=== PATIENT | female | born 1970 | race Caucasian/White ===

== ENCOUNTER → 2020-10-20 09:35 | Outpatient (BNVA) | payer MEDICARE, MEDICAID, SELFPAY | PROVIDERS: Family Provider Nurse Practitioner Family; Visit Provider Obstetrics & Gynecology | DX: N93.9 Abnormal uterine and vaginal bleeding, unspecified (principal); Z12.4 Encounter for screening for malignant neoplasm of cervix; N92.0 Excessive and frequent menstruation with regular cycle | CPT/HCPCS: 84443; 88175; 88305 ==

== ENCOUNTER → 2020-10-21 08:45 | Outpatient (BNVA) | payer MEDICARE, MEDICAID, SELFPAY | PROVIDERS: Family Provider Nurse Practitioner Family; Visit Provider Obstetrics & Gynecology | DX: N85.4 Malposition of uterus (principal); N88.8 Other specified noninflammatory disorders of cervix uteri | CPT/HCPCS: 76830 ==

== ENCOUNTER → 2023-02-22 13:33 | Outpatient (BNVA) | payer MEDICARE, MEDICAID, SELFPAY | PROVIDERS: Family Provider Nurse Practitioner Family; PCP Family Medicine; Visit Provider Surgery | DX: Z12.11 Encounter for screening for malignant neoplasm of colon (principal); K21.9 Gastro-esophageal reflux disease without esophagitis | CPT/HCPCS: 99024; 99203 ==

== ENCOUNTER 2023-04-19 07:53 | Day surgery (SDC) | payer MEDICARE, MEDICAID, SELFPAY ==
[2023-04-19 08:15] VITALS: BP 98/77; PULSE 98; RESP 17; TEMP 36.3; O2SAT 97; BMI 30.9
[2023-04-19] MEDS: sodium chloride 0.9% 1,000 ML 30 ML IV (08:20)
--- NOTE | 2023-04-19 08:20 | P.ANESASSM_ITS ---
Pre-Anesthetic Assessment Height/Weight: Height 1.63 m Weight 81.647 kg Temp Pulse Resp BP Pulse Ox O2 Del Method 97.4 F L 98 17 98/77 97 Room Air 04/19/23 08:15 04/19/23 08:15 04/19/23 08:15 04/19/23 08:15 04/19/23 08:15 04/19/23 08:15 Preop Diagnosis: screening Operation Date: 04/19/23 09:00 Proposed Procedures p [id number] egd [id number] colon Z12.11,K21.9(Not Applicable) - DO willie Hinojosa Colonoscopy(Not Applicable) - Audi Lincoln DO Familial anesthetic complications: none Last intake: Intake Last Liquid Date 04/18/23 Last Liquid Time 22:00 Last Solid Date 04/17/23 Social No alcohol and No tobacco Exam alert, oriented x 3, clear to auscultation bilaterally and regular rate & rhythm Airway Submandibular: within normal limits Cervical ROM: within normal limits Mallampati: Class II Dentition: full Pulmonary None reported CV/HEM Hypertension None reported Hepatic None reported GI None reported Metabolic Diabetes Mellitus and Hyperlipidemia [facility] Fibromyalgia and Lower Back Pain Neuropsych Anxiety, Depression and Neuropathy (bilateral hands) Anesthetic Plan ASA status: 3 Anesthesia: MAC Medications/Allergies Home Medications Medication Instructions Recorded Confirmed Last Taken Type canagliflozin 300 mg tablet 300 mg PO BEDTIME 10/20/20 04/19/23 04/17/23 History (Invokana) celecoxib 200 mg capsule 200 mg PO BID 10/20/20 04/19/23 04/18/23 History fexofenadine 180 mg tablet 180 mg PO DAILY PRN Allergy 10/20/20 04/19/23 04/17/23 History (Kimberly Allergy) Symptoms melatonin 5 mg capsule 5 mg PO BEDTIME 10/20/20 04/19/23 04/17/23 History metformin 500 mg tablet 500 mg PO BID 10/20/20 04/19/23 04/18/23 History pregabalin 150 mg capsule 150 mg PO TID 10/20/20 04/19/23 04/18/23 History rosuvastatin 20 mg tablet 20 mg PO DAILY 10/20/20 04/19/23 04/18/23 History tizanidine 4 mg capsule 4 mg PO TID 10/20/20 04/19/23 04/19/23 History vortioxetine 20 mg tablet 20 mg PO DAILY 10/20/20 04/19/23 04/18/23 History (Trintellix) hydrocodone 10 mg-acetaminophen 1 tab PO .6 tabs daily PRN Pain 02/22/23 04/19/23 04/19/23 History 325 mg tablet lisinopril 5 mg tablet 5 mg PO BID 02/22/23 04/19/23 04/18/23 History pantoprazole 40 mg tablet,delayed 40 mg PO BID 6 weeks #84 tabs 02/22/23 04/19/23 04/18/23 Rx release (Protonix) tirzepatide 7.5 mg/0.5 mL 10 mg SUBCUT .1x week 02/22/23 04/19/23 04/12/23 History subcutaneous pen injector (Mounjaro) cyanocobalamin (vitamin B-12) 1,000 mcg IM .MONTHLY 04/17/23 04/19/23 03/26/23 History 1,000 mcg/mL injection solution epinephrine 0.3 mg/0.3 mL 0.3 mg SUBCUT PRN PRN Anaphylaxis 04/17/23 04/19/23 Unknown History injection, auto-injector Allergies Allergy/AdvReac Type Severity Reaction Status Date / Time Alpha-Gal Allergy nausea/vomiting, Verified 04/19/23 08:06 (Vrpnufmfc-Cfrwx-7,3-Gala diarrhea, anyphalaxis PFSH Anesthesia Family History Grandmother Breast cancer Maternal Diabetes Paternal Father Cancer Skin cancer Diabetes Hypertension Family/Other Cancer Paternal Aunts and Uncles x4--skin cancer Diabetes Paternal Aunts and Uncles x4 Grandmother Diabetes Maternal Family/Other Diabetes Maternal uncle Hypertension Paternal Aunts and Uncles x4 Grandfather Stroke Paternal Mother Stroke Denies family history of Ovarian cancer Chronic kidney disease (CKD) Anesthesia complication Bleeding disorder Uterine cancer Thyroid disease Social History Smoking and tobacco/nicotine status: former use of tobacco/nicotine Alcohol intake: never Substance/Drug Use: never Data Anesthesia Cardiac Studies: No Data to Display
[2023-04-19 08:23] LABS: Glucose Point of Care 73 mg/dL (70-110)
--- NOTE | 2023-04-19 08:26 | PM.HP ---
Providers/Chief Complaint Primary Care Provider: Ag Almanzar MD Chief Complaint: Z12.11, K21.9 History of Present Illness Dana Farmer is a 52 year old female Review of Systems General: Reports: 10 or more systems reviewed and unremarkable except in HPI and below Medications/Allergies Home Medications Medication Instructions Recorded Confirmed Last Taken Type canagliflozin 300 mg tablet 300 mg PO BEDTIME 10/20/20 04/19/23 04/17/23 History (Invokana) celecoxib 200 mg capsule 200 mg PO BID 10/20/20 04/19/23 04/18/23 History fexofenadine 180 mg tablet 180 mg PO DAILY PRN Allergy 10/20/20 04/19/23 04/17/23 History (Kimberly Allergy) Symptoms melatonin 5 mg capsule 5 mg PO BEDTIME 10/20/20 04/19/23 04/17/23 History metformin 500 mg tablet 500 mg PO BID 10/20/20 04/19/23 04/18/23 History pregabalin 150 mg capsule 150 mg PO TID 10/20/20 04/19/23 04/18/23 History rosuvastatin 20 mg tablet 20 mg PO DAILY 10/20/20 04/19/23 04/18/23 History tizanidine 4 mg capsule 4 mg PO TID 10/20/20 04/19/23 04/19/23 History vortioxetine 20 mg tablet 20 mg PO DAILY 10/20/20 04/19/23 04/18/23 History (Trintellix) hydrocodone 10 mg-acetaminophen 1 tab PO .6 tabs daily PRN Pain 02/22/23 04/19/23 04/19/23 History 325 mg tablet lisinopril 5 mg tablet 5 mg PO BID 02/22/23 04/19/23 04/18/23 History pantoprazole 40 mg tablet,delayed 40 mg PO BID 6 weeks #84 tabs 02/22/23 04/19/23 04/18/23 Rx release (Protonix) tirzepatide 7.5 mg/0.5 mL 10 mg SUBCUT .1x week 02/22/23 04/19/23 04/12/23 History subcutaneous pen injector (Mounjaro) cyanocobalamin (vitamin B-12) 1,000 mcg IM .MONTHLY 04/17/23 04/19/23 03/26/23 History 1,000 mcg/mL injection solution epinephrine 0.3 mg/0.3 mL 0.3 mg SUBCUT PRN PRN Anaphylaxis 04/17/23 04/19/23 Unknown History injection, auto-injector Allergies Allergy/AdvReac Type Severity Reaction Status Date / Time Alpha-Gal Allergy nausea/vomiting, Verified 04/19/23 08:06 (Askbbauqr-Rnivp-6,3-Gala diarrhea, anyphalaxis PFSH Acute PFSH: Medical History (Updated 04/19/23 @ 08:27 by Audi Lincoln DO) Anxiety Cervical vertebral fusion 2013 Depression Diabetes type 2, controlled Fibromyalgia History of basal cell carcinoma of skin 1017-6410 History of melanoma x2-- 8044-4237 Hypertension Hypotension Surgical History (Updated 04/19/23 @ 08:27 by Audi Lincoln DO) H/O section x2-- 08/13/96 & 1999 History of endometrial ablation History of neck surgery fusion Hx of dilation and curettage Family History Grandmother Breast cancer Maternal Diabetes Paternal Father Cancer Skin cancer Diabetes Hypertension Family/Other Cancer Paternal Aunts and Uncles x4--skin cancer Diabetes Paternal Aunts and Uncles x4 Grandmother Diabetes Maternal Family/Other Diabetes Maternal uncle Hypertension Paternal Aunts and Uncles x4 Grandfather Stroke Paternal Mother Stroke Denies family history of Ovarian cancer Chronic kidney disease (CKD) Anesthesia complication Bleeding disorder Uterine cancer Thyroid disease Social History Smoking and tobacco/nicotine status: former use of tobacco/nicotine Alcohol intake: never Substance/Drug Use: never Vitals/I&O/Wt Last Vital Signs Temp 97.4 F L 04/19/23 08:15 Pulse 98 04/19/23 08:15 Resp 17 04/19/23 08:15 BP 98/77 04/19/23 08:15 Pulse Ox 97 04/19/23 08:15 O2 Del Method Room Air 04/19/23 08:15 Weight last 48 hrs Weight 180 lb A&P Assessment and plan (1) GERD (gastroesophageal reflux disease): (2) Colon cancer screening: Plan EGD and screening colonoscopy The risks and benefits of the procedure, including bleeding, infection, intestinal perforation requiring surgery, missed lesion were explained to the patient. The patient is understanding of the risks and wishes to proceed. Attestations Medical Necessity Statement*: Home Coding Level of Care Code Acute Code for Chg Fwd Diagnoses GERD (gastroesophageal reflux disease) K21.9 Colon cancer screening Z12.11
[2023-04-19 09:01] VITALS: BP 88/62; PULSE 92; RESP 14; TEMP 36.1; O2SAT 98
[2023-04-19 09:10] VITALS: BP 109/65; PULSE 86; RESP 16; O2SAT 98
== END 2023-04-19 09:33 | disposition home or self-care (01) ==
PROVIDERS: PCP Family Medicine; Visit Provider Surgery
PROC: 0DJ08ZZ Inspection of Upper Intestinal Tract, Via Natural or Artificial Opening Endoscopic (ICD-10-PCS; CPT 43235; principal; 2023-04-19 09:00)
PROC: 0DJD8ZZ Inspection of Lower Intestinal Tract, Via Natural or Artificial Opening Endoscopic (ICD-10-PCS; CPT 45378; 2023-04-19 09:00)
DX: Z12.11 Encounter for screening for malignant neoplasm of colon (principal); K21.9 Gastro-esophageal reflux disease without esophagitis; K29.70 Gastritis, unspecified, without bleeding; Z79.84 Long term (current) use of oral hypoglycemic drugs; F41.9 Anxiety disorder, unspecified; F32.A Depression, unspecified; M79.7 Fibromyalgia; I10 Essential (primary) hypertension; Z87.891 Personal history of nicotine dependence; E78.5 Hyperlipidemia, unspecified; E11.42 Type 2 diabetes mellitus with diabetic polyneuropathy
CPT/HCPCS: 36416; 43239; 82962; 88305; G0121; J2704; J7030

== ENCOUNTER → 2023-05-02 09:22 | Outpatient (BNVA) | payer MEDICARE, MEDICAID, SELFPAY | PROVIDERS: PCP Family Medicine; Visit Provider Surgery | DX: Z09 Encounter for follow-up examination after completed treatment for conditions other than malignant neoplasm (principal); K21.9 Gastro-esophageal reflux disease without esophagitis; R11.2 Nausea with vomiting, unspecified; R10.13 Epigastric pain; R13.10 Dysphagia, unspecified | CPT/HCPCS: 99214 ==

== ENCOUNTER 2023-05-18 06:31 | Outpatient (CLI) | payer MEDICARE, MEDICAID, SELFPAY ==
--- NOTE | 2023-05-18 06:45 | US_ITS ---
WS: [id number] RIGHT UPPER QUADRANT ULTRASOUND HISTORY: epigastric pain, nausea and vomiting COMPARISON: None available. Liver: 14.4 cm in length. Normal size liver and echogenicity. No bile duct dilatation or mass. Portal Vein: Normal hepatopetal flow with monophasic waveform. Gallbladder: Normally distended gallbladder with no stones or wall thickening. CBD: 0.5 cm Pancreas: Normal size and echogenicity. Right kidney: 10.6 cm in length. Normal size and echogenicity. No hydronephrosis or mass. Aorta and IVC: Unremarkable abdominal aorta and IVC. No ascites. IMPRESSION: Normal RIGHT upper quadrant ultrasound.
== END 2023-05-18 06:32 | disposition home or self-care (01) ==
LOC: RAD 06:31
PROVIDERS: PCP Family Medicine; Visit Provider Surgery
DX: R10.13 Epigastric pain (principal); R11.2 Nausea with vomiting, unspecified
CPT/HCPCS: 76705

== ENCOUNTER → 2023-06-06 09:13 | Outpatient (BNVA) | payer MEDICARE, MEDICAID, SELFPAY | PROVIDERS: PCP Family Medicine; Visit Provider Surgery | DX: R10.13 Epigastric pain (principal); R11.2 Nausea with vomiting, unspecified; K21.9 Gastro-esophageal reflux disease without esophagitis; R19.7 Diarrhea, unspecified | CPT/HCPCS: 99214 ==

== ENCOUNTER 2023-06-20 07:41 | Outpatient (CLI) | payer MEDICARE, MEDICAID, SELFPAY ==
--- NOTE | 2023-06-20 08:00 | NM_ITS ---
WS: [id number] NUCLEAR MEDICINE HIDA SCAN CLINICAL INFORMATION: abd pain TECHNIQUE: Following intravenous administration of 7.6 mCi of technetium 99m mebrofenin, images of th e abdomen were obtained over the course of 60 minutes. Next, gallbladder ejection fraction was determ ined by obtaining preprandial and one-hour postprandial images of the gallbladder following oral tammi stion of Ensure. COMPARISON: Ultrasound 05/18/2023 FINDINGS: Normal hepatic uptake at 5 minutes. Normal hepatic excretion. Gallbladder is visualized by 10 minutes . No evidence of acute cholecystitis. Normal common bile duct and small bowel activity. Gallbladder ejection fraction 67% within normal limits. No evidence of chronic cholecystitis. IMPRESSION: 1. No evidence of acute or chronic cholecystitis. 2. Gallbladder ejection fraction 67% within normal limits.
== END 2023-06-20 07:42 | disposition home or self-care (01) ==
PROVIDERS: PCP Family Medicine; Visit Provider Surgery
DX: R10.13 Epigastric pain (principal); R11.2 Nausea with vomiting, unspecified; K21.9 Gastro-esophageal reflux disease without esophagitis
CPT/HCPCS: 78227; A9537

== ENCOUNTER 2023-07-24 05:51 | Day surgery (SDC) | payer MEDICARE, MEDICAID, SELFPAY ==
[2023-07-24] VITALS (10 sets, daily range): BP systolic 100–130; BP diastolic 62–84; PULSE 48–107; RESP 9–20; TEMP 36.1–36.4; O2SAT 95–100
--- NOTE | 2023-07-24 06:41 | P.ANESASSM_ITS ---
Pre-Anesthetic Assessment Height/Weight: Height 1.63 m Weight 79.379 kg Temp Pulse Resp BP Pulse Ox O2 Del Method 97.0 F L 61 18 113/75 100 Room Air 07/24/23 06:37 07/24/23 06:37 07/24/23 06:37 07/24/23 06:37 07/24/23 06:37 07/24/23 06:37 Operation Date: 07/24/23 07:00 Proposed Procedures p ap corwin [id number],R10.13, R11.2(Not Applicable) - Audi Lincoln DO Familial anesthetic complications: None Was Beta Ronni taken within 24 hours: N/A Was Clonidine taken within 24 hours: N/A Last intake: Intake Last Liquid Date 07/23/23 Last Liquid Time 21:00 Last Solid Date 07/23/23 Last Solid Time 18:00 Social No alcohol and No tobacco Exam alert, oriented x 3, clear to auscultation bilaterally and regular rate & rhythm Airway Mallampati: Class II Dentition: full Pulmonary Chronic Obstructive Pulmonary Disease hx R upper lobectomy for lung cancer GI Gastroesophageal Reflux Disease Metabolic Diabetes Mellitus and Hyperlipidemia Anesthetic Plan ASA status: 3 Anesthesia: General Risk of > 500 ml blood loss (7ml/kg in children): No Medications/Allergies Home Medications Medication Instructions Recorded Confirmed Last Taken Type canagliflozin 300 mg tablet 300 mg PO BEDTIME 10/20/20 07/24/23 07/21/23 History (Invokana) celecoxib 200 mg capsule 200 mg PO BID 10/20/20 07/24/23 07/23/23 History melatonin 5 mg capsule 5 mg PO BEDTIME 10/20/20 07/24/23 07/23/23 History metformin 500 mg tablet 500 mg PO BID 10/20/20 07/24/23 07/23/23 History pregabalin 150 mg capsule 150 mg PO TID 10/20/20 07/24/23 07/23/23 History rosuvastatin 20 mg tablet 20 mg PO DAILY 10/20/20 07/24/23 07/23/23 History tizanidine 4 mg capsule 4 mg PO TID 10/20/20 07/24/23 07/23/23 History vortioxetine 20 mg tablet 20 mg PO DAILY 10/20/20 07/24/23 07/23/23 History (Trintellix) hydrocodone 10 mg-acetaminophen 1 tab PO .6 tabs daily PRN Pain 02/22/23 07/24/23 07/23/23 History 325 mg tablet lisinopril 5 mg tablet 5 mg PO BID 02/22/23 07/24/23 07/23/23 History tirzepatide 7.5 mg/0.5 mL 10 mg SUBCUT .1x week 02/22/23 07/24/23 07/16/23 H istory subcutaneous pen injector (Hugh) cyanocobalamin (vitamin B-12) 1,000 mcg IM .MONTHLY 04/17/23 07/24/23 1 Month Ago History 1,000 mcg/mL injection solution ~06/23/23 epinephrine 0.3 mg/0.3 mL 0.3 mg SUBCUT PRN PRN Anaphylaxis 04/17/23 07/24/23 Unknown History injection, auto-injector Allergies Allergy/AdvReac Type Severity Reaction Status Date / Time Alpha-Gal Allergy nausea/vomiting, Verified 07/24/23 06:20 (Kvflgfswq-Zseyh-9,3-Gala diarrhea, anyphalaxis [facility] Anesthesia Medical History Diabetes type 2, controlled Fibromyalgia Anxiety Depression Hypertension Hypotension Cervical vertebral fusion 2013 History of basal cell carcinoma of skin 9805-6218 History of melanoma x2-- 9289-4515 Surgical History H/O section x2-- 08/13/96 & 1999 History of neck surgery fusion History of endometrial ablation Hx of dilation and curettage Family History Grandmother Breast cancer Maternal Diabetes Paternal Father Cancer Skin cancer Diabetes Hypertension Family/Other Cancer Paternal Aunts and Uncles x4--skin cancer Diabetes Paternal Aunts and Uncles x4 Grandmother Diabetes Maternal Family/Other Diabetes Maternal uncle Hypertension Paternal Aunts and Uncles x4 Grandfather Stroke Paternal Mother Stroke Denies family history of Ovarian cancer Chronic kidney disease (CKD) Anesthesia complication Bleeding disorder Uterine cancer Thyroid disease Social History Smoking and tobacco/nicotine status: former use of tobacco/nicotine Alcohol intake: never Substance/Drug Use: never Data Anesthesia Cardiac Studies: No Data to Display
--- NOTE | 2023-07-24 06:43 | P.ANESASSM_ITS ---
Pre-Anesthetic Assessment Height/Weight: Height 1.63 m Weight 79.379 kg Temp Pulse Resp BP Pulse Ox O2 Del Method 97.0 F L 61 18 113/75 100 Room Air 07/24/23 06:37 07/24/23 06:37 07/24/23 06:37 07/24/23 06:37 07/24/23 06:37 07/24/23 06:37 Operation Date: 07/24/23 07:00 Proposed Procedures p ap corwin [id number],R10.13, R11.2(Not Applicable) - Audi Lincoln DO Familial anesthetic complications: None Was Beta Ronni taken within 24 hours: N/A Was Clonidine taken within 24 hours: N/A Last intake: Intake Last Liquid Date 07/23/23 Last Liquid Time 21:00 Last Solid Date 07/23/23 Last Solid Time 18:00 Social No alcohol and No tobacco Exam alert, oriented x 3, clear to auscultation bilaterally and regular rate & rhythm Airway Mallampati: Class III Dentition: full GI Gastroesophageal Reflux Disease Metabolic Diabetes Mellitus and Hyperlipidemia [facility] Fibromyalgia and Lower Back Pain Anesthetic Plan ASA status: 2 Anesthesia: General Risk of > 500 ml blood loss (7ml/kg in children): No Medications/Allergies Home Medications Medication Instructions Recorded Confirmed Last Taken Type canagliflozin 300 mg tablet 300 mg PO BEDTIME 10/20/20 07/24/23 07/21/23 History (Invokana) celecoxib 200 mg capsule 200 mg PO BID 10/20/20 07/24/23 07/23/23 History melatonin 5 mg capsule 5 mg PO BEDTIME 10/20/20 07/24/23 07/23/23 History metformin 500 mg tablet 500 mg PO BID 10/20/20 07/24/23 07/23/23 History pregabalin 150 mg capsule 150 mg PO TID 10/20/20 07/24/23 07/23/23 History rosuvastatin 20 mg tablet 20 mg PO DAILY 10/20/20 07/24/23 07/23/23 History tizanidine 4 mg capsule 4 mg PO TID 10/20/20 07/24/23 07/23/23 History vortioxetine 20 mg tablet 20 mg PO DAILY 10/20/20 07/24/23 07/23/23 History (Trintellix) hydrocodone 10 mg-acetaminophen 1 tab PO .6 tabs daily PRN Pain 02/22/23 07/24/23 07/23/23 History 325 mg tablet lisinopril 5 mg tablet 5 mg PO BID 02/22/23 07/24/23 07/23/23 History tirzepatide 7.5 mg/0.5 mL 10 mg SUBCUT .1x week 02/22/23 07/24/23 07/16/23 History subcutaneous pen injector (Hugh) cyanocobalamin (vitamin B-12) 1,000 mcg IM .MONTHLY 04/17/23 07/24/23 1 Month Ago History 1,000 mcg/mL injection solution ~06/23/23 epinephrine 0.3 mg/0.3 mL 0.3 mg SUBCUT PRN PRN Anaphylaxis 04/17/23 07/24/23 Unknown History injection, auto-injector Allergies Allergy/AdvReac Type Severity Reaction Status Date / Time Alpha-Gal Allergy nausea/vomiting, Verified 07/24/23 06:20 (Vkrbwoncy-Srvjr-5,3-Gala diarrhea, anyphalaxis [facility] Anesthesia Medical History Diabetes type 2, controlled Fibromyalgia Anxiety Depression Hypertension Hypotension Cervical vertebral fusion 2013 History of basal cell carcinoma of skin 5551-7073 History of melanoma x2-- 1533-2547 Surgical History H/O section x2-- 08/13/96 & 1999 History of neck surgery fusion History of endometrial ablation Hx of dilation and curettage Family History Grandmother Breast cancer Maternal Diabetes Paternal Father Cancer Skin cancer Diabetes Hypertension Family/Other Cancer Paternal Aunts and Uncles x4--skin cancer Diabetes Paternal Aunts and Uncles x4 Grandmother Diabetes Maternal Family/Other Diabetes Maternal uncle Hypertension Paternal Aunts and Uncles x4 Grandfather Stroke Paternal Mother Stroke Denies family history of Ovarian cancer Chronic kidney disease (CKD) Anesthesia complication Bleeding disorder Uterine cancer Thyroid disease Social History Smoking and tobacco/nicotine status: former use of tobacco/nicotine Alcohol intake: never Substance/Drug Use: never Data Anesthesia Cardiac Studies: No Data to Display
--- NOTE | 2023-07-24 06:44 | PM.HP ---
Providers/Chief Complaint Primary Care Provider: Ag Almanzar MD Chief Complaint: R10.13, R11.2 History of Present Illness Dana Farmer is a 52 year old female Review of Systems General: Reports: 10 or more systems reviewed and unremarkable except in HPI and below Medications/Allergies Home Medications Medication Instructions Recorded Confirmed Last Taken Type canagliflozin 300 mg tablet 300 mg PO BEDTIME 10/20/20 07/24/23 07/21/23 History (Invokana) celecoxib 200 mg capsule 200 mg PO BID 10/20/20 07/24/23 07/23/23 History melatonin 5 mg capsule 5 mg PO BEDTIME 10/20/20 07/24/23 07/23/23 History metformin 500 mg tablet 500 mg PO BID 10/20/20 07/24/23 07/23/23 History pregabalin 150 mg capsule 150 mg PO TID 10/20/20 07/24/23 07/23/23 History rosuvastatin 20 mg tablet 20 mg PO DAILY 10/20/20 07/24/23 07/23/23 History tizanidine 4 mg capsule 4 mg PO TID 10/20/20 07/24/23 07/23/23 History vortioxetine 20 mg tablet 20 mg PO DAILY 10/20/20 07/24/23 07/23/23 History (Trintellix) hydrocodone 10 mg-acetaminophen 1 tab PO .6 tabs daily PRN Pain 02/22/23 07/24/23 07/23/23 History 325 mg tablet lisinopril 5 mg tablet 5 mg PO BID 02/22/23 07/24/23 07/23/23 History tirzepatide 7.5 mg/0.5 mL 10 mg SUBCUT .1x week 02/22/23 07/24/23 07/16/23 History subcutaneous pen injector (Mounjaro) cyanocobalamin (vitamin B-12) 1,000 mcg IM .MONTHLY 04/17/23 07/24/23 1 Month Ago History 1,000 mcg/mL injection solution ~06/23/23 epinephrine 0.3 mg/0.3 mL 0.3 mg SUBCUT PRN PRN Anaphylaxis 04/17/23 07/24/23 Unknown History injection, auto-injector Allergies Allergy/AdvReac Type Severity Reaction Status Date / Time Alpha-Gal Allergy nausea/vomiting, Verified 07/24/23 06:20 (Lzatuhylj-Ridcm-2,3-Gala diarrhea, anyphalaxis PFSH Acute PFSH: Medical History Diabetes type 2, controlled Fibromyalgia Anxiety Depression Hypertension Hypotension Cervical vertebral fusion 2013 History of basal cell carcinoma of skin 9077-1309 History of melanoma x2-- 3591-8319 Surgical History H/O section x2-- 08/13/96 & 1999 History of neck surgery fusion History of endometrial ablation Hx of dilation and curettage Family History Grandmother Breast cancer Maternal Diabetes Paternal Father Cancer Skin cancer Diabetes Hypertension Family/Other Cancer Paternal Aunts and Uncles x4--skin cancer Diabetes Paternal Aunts and Uncles x4 Grandmother Diabetes Maternal Family/Other Diabetes Maternal uncle Hypertension Paternal Aunts and Uncles x4 Grandfather Stroke Paternal Mother Stroke Denies family history of Ovarian cancer Chronic kidney disease (CKD) Anesthesia complication Bleeding disorder Uterine cancer Thyroid disease Social History Smoking and tobacco/nicotine status: former use of tobacco/nicotine Alcohol intake: never Substance/Drug Use: never Vitals/I&O/Wt Last Vital Signs Temp 97.0 F L 07/24/23 06:37 Pulse 61 07/24/23 06:37 Resp 18 07/24/23 06:37 BP 113/75 07/24/23 06:37 Pulse Ox 100 07/24/23 06:37 O2 Del Method Room Air 07/24/23 06:37 Weight last 48 hrs Weight 175 lb A&P Assessment and plan (1) Biliary colic: (2) Nausea and vomiting: (3) Epigastric pain: (4) Diarrhea: Plan Laparoscopic Cholecystectomy Attestations Medical Necessity Statement*: home Coding Level of Care Code Acute Code for [facility] Fwd Diagnoses Biliary colic K80.50 Nausea and vomiting R11.2 Epigastric pain R10.13 Diarrhea R19.7
[2023-07-24] MEDS: sodium chloride 0.9% 1,000 ML 30 ML IV (06:57)
[2023-07-24 07:02] LABS: Glucose Point of Care 101 mg/dL (70-110)
[2023-07-24] MEDS: ceFAZolin 2,000 MG in sodium chloride 0.9% (plus) 50 ML 100 MG IV (07:11)
[2023-07-24] MEDS: lidocaine-epi 2% 20 mL INJ INJECTION (07:36)
--- NOTE | 2023-07-24 07:52 | P.OP_ITS ---
Operative Report Date of procedure: July 24, 2023 Surgeon: Audi Lincoln DO Brief History: This very pleasant 52-year-old female who has been having biliary colic along with nausea vomiting, epigastric pain and diarrhea after eating. She was diagnosed with biliary colic and right upper quadrant syndrome. Laparoscopic cholecystectomy is indicated. The risk and benefits were explained and documented. Procedure: Preoperative diagnosis: Biliary colic, right upper quadrant syndrome Postoperative diagnosis: Same Procedure performed: Laparoscopic cholecystectomy Surgeon: Dr. Audi Lincoln DO Estimated blood loss: 5 mL Specimens: Gallbladder to pathology Complications: None apparent Description of procedure: Patient was wheeled into the operative room and placed on the OR table in a supine position. Abdomen was inspected prepped and draped in usual sterile fashion. Time-out was performed and all present were in agreement. A 15 blade scalp was used to make a stab incision in the left upper quadrant and intra- abdominal insufflation was achieved using a Veress needle. After localizing the tissue incisions were made and a 5 millimeter trocar was placed into the umbilicus as well as 2 in the right upper quadrant. A 12 millimeter trocar was placed in the epigastrium. Gallbladder was grasped and elevated. The triangle of Calot was carefully dissected using blunt dissection and electrocautery until the triangle of Calot clearly identified. The cystic duct was clipped proximally and double clipped distally. The duct was then ligated proximally. The cystic artery was doubly clipped and ligated. The gallbladder was then removed from the liver bed using electrocautery. The gallbladder was removed from the abdomen using an Endo-Catch bag through the epigastric incision. The liver bed was inspected and no bleeding was seen. The abdomen was irrigated and suctioned. All ports removed. Skin was washed and dried. Incisions were closed with 4-0 Monocryl in a subcuticular interrupted fashion. Skin glue was applied. Patient tolerated the procedure well.
[2023-07-24] MEDS: ondansetron 2 mg/ML SDV 2 mL 4 MG IVP ×2 (08:10→08:15)
[2023-07-24] MEDS: metoclopramide 5 mg/mL SDV 2 mL 10 MG IVP (08:47)
[2023-07-24] MEDS: scopolamine 1.5 Patch 1 PATCH TRANSDERMA (08:50)
[2023-07-24] MEDS: HYDROcodone-acetaminophen 10-325 mg Tablet 1 TAB PO (09:08)
--- NOTE | 2023-07-24 09:25 | ANE.PACU2 ---
Inpatient post-anesthesia follow up: Airway intact: Yes Vital signs: Temperature 97.1 F Pulse Rate 56 Respiratory Rate 16 Blood Pressure 103/66 Pulse Oximetry 97 Oxygen Delivery Me thod Room Air Oxygen Flow Rate 6 Fraction of Inspir ed Oxygen Hydration adequate: Yes Nausea and vomiting: No Pain level: 1 Mental status: Baseline
== END 2023-07-24 09:27 | disposition home or self-care (01) ==
PROVIDERS: PCP Family Medicine; Visit Provider Surgery
PROC: 0FT44ZZ Resection of Gallbladder, Percutaneous Endoscopic Approach (ICD-10-PCS; CPT 47562; principal; 2023-07-24 07:00)
DX: K80.10 Calculus of gallbladder with chronic cholecystitis without obstruction (principal); K21.9 Gastro-esophageal reflux disease without esophagitis; E11.9 Type 2 diabetes mellitus without complications; E78.5 Hyperlipidemia, unspecified; M79.7 Fibromyalgia; I10 Essential (primary) hypertension; Z87.891 Personal history of nicotine dependence; J44.9 Chronic obstructive pulmonary disease, unspecified; Z79.84 Long term (current) use of oral hypoglycemic drugs; Z98.1 Arthrodesis status
CPT/HCPCS: 47562; 36416; 82962; 88304; J0330; J0690; J1100; J2250; J2405; J2710; J2765; J3010; J3490; J7030

== ENCOUNTER → 2023-08-07 08:15 | Outpatient (BNVA) | payer MEDICARE, MEDICAID, SELFPAY | PROVIDERS: PCP Family Medicine; Visit Provider Surgery | DX: Z90.49 Acquired absence of other specified parts of digestive tract (principal); Z98.890 Other specified postprocedural states | CPT/HCPCS: 99024 ==

== ENCOUNTER 2023-10-23 11:02 | Outpatient (CLI) | payer MEDICARE, MEDICAID, SELFPAY ==
--- NOTE | 2023-10-23 11:09 | XRR_ITS ---
PROCEDURE INFORMATION: Exam: XR Cervical Spine Exam date and time: 10/23/2023 11:16 AM Age: 52 years old Clinical indication: Pain; Cervicalgia; Prior surgery; Surgery date: 6+ months; Surgery type: C5-c7 fusion; Patient HX: HX of melanoma TECHNIQUE: Imaging protocol: Radiologic exam of the cervical spine. Views: 2 or 3 views. COMPARISON: CT cervical spin wo con* [id number] 05/24/2017 1:27 PM FINDINGS: Bones/joints: Lateral flexion and extension views of the cervical spine show normal vertebral body height and prior C5-7 ACDF without subluxation, dislocation or abnormal translation. Slight intervertebral disc space narrowing and osteophytosis at C3-C4, [id number] at C4-C5. Soft tissues: Unremarkable. XR/XR cervical spine fl/ex [id number] IMPRESSION: 1. No acute findings. 2. Aqko-qa-olhalndy C3-5 degenerative change.
== END 2023-10-23 11:03 | disposition home or self-care (01) ==
LOC: RAD 11:05
PROVIDERS: PCP Family Medicine; Visit Provider Family Medicine
DX: M50.31 Other cervical disc degeneration, high cervical region (principal)
CPT/HCPCS: 72040

== ENCOUNTER 2024-05-19 15:03 | Emergency (ER) | payer MEDICARE, SELFPAY ==
[2024-05-19 15:20] VITALS: BP 107/68; PULSE 112; RESP 16; TEMP 36.8; O2SAT 97
[2024-05-19 15:28] LABS: Glucose Point of Care 138 mg/dL (70-110)
[2024-05-19 16:15] LABS: Basophils % 0.2 %; Eosinophils % 0.2 %; Hematocrit 52.4 % (36-47); Lymphocytes # 0.4 10^3/uL (0.8-4.8); Lymphocytes % 2.9 %; Mean Corpuscular HGB Conc 32.6 g/dL (30-55); Mean Corpuscular Hemoglobin 32.1 pg (27-33); Mean Corpuscular Volume 98.5 fl (85-98); Monocytes # 0.3 10^3/uL (0.2-0.9); Monocytes % 2.2 %; Neutrophils % 94.2 %; Nucleated Red Blood Cells % 0 %; Platelet Count 210 10^3/cmm (157-399); Red Blood Count 5.32 10^6/uL (3.85-5.65); Red Cell Distribution Width 13.8 % (12.1-15.1); White Blood Count 13.27 10^3/uL (3.29-11.43)
[2024-05-19 16:30] LABS: Alanine Aminotransferase 54 U/L (0-33); Albumin Level 4.9 g/dL (3.5-5.2); Alkaline Phosphatase 63 U/L (35-105); Anion Gap 32.8 (5-19); Aspartate Amino Transferase 55 U/L (0-32); Blood Urea Nitrogen 31 mg/dL (6-20); Calcium 9.5 mg/dL (8.5-10.5); Chloride 103 mmol/L (98-107); Creatinine Clr Calc Pharmacy 59.4242; Globulin 3.3 g/dL (1.3-4.6); Glomerular Filtration Rate 52.4 mL/min (90-130); Glucose 178 mg/dL (65-115); Lipase 9 U/L (13-60); Osmolality Calculated 301 mOsm/kg (285-295); Potassium 4.8 mmol/L (3.5-5.1); Sodium 140 mmol/L (136-145); Total Bilirubin 0.5 mg/dL (0.15-1.2); Total Protein 8.2 g/dL (6.6-8.7)
[2024-05-19 16:32] LABS: Carbon Dioxide 9 mmol/L (22-29)
[2024-05-19] MEDS: sodium chloride 0.9% 1,000 ML 999 ML IV ×3 (19:00→21:53)
[2024-05-19] MEDS: morphine 4 mg/mL SDV 1 mL IVP (19:00)
[2024-05-19] MEDS: ondansetron 2 mg/ML SDV 2 mL 4 MG IVP (19:00)
[2024-05-19] MEDS: prochlorperazine 10 mg/2 mL Inj 5 MG IVP (19:13)
[2024-05-19 19:22] VITALS: BP 93/70; PULSE 118; RESP 18; O2SAT 100
[2024-05-19 20:35] VITALS: BP 119/70; PULSE 120; RESP 16; O2SAT 99
--- NOTE | 2024-05-19 21:45 | ED_ITS ---
HPI - Nausea/Vomiting/Diarrhea 2 General: Chief complaint: Nausea/Vomiting/Diarrhea Stated complaint: vommiting, dyhydrated, pain everywhere, diabetic Time Seen by Provider: 05/19/24 15:20 History of Present Illness: This patient is a 53-year-old white female who presents to the emergency department with vomiting over the past 24 hours. She is also had diarrhea. She cannot keep anything down especially her medications. She has a history of chronic pain and fibromyalgia. She is on hydrocodone and has not been able to take that and she is having pain everywhere now. She has not had a fever. Associated nausea: Yes Associated symtoms: Reports nausea Related Data Home Medications Medication Instructions Recorded Confirmed canagliflozin 300 mg tablet 300 mg PO BEDTIME 10/20/20 08/07/23 (Invokana) celecoxib 200 mg capsule 200 mg PO BID 10/20/20 08/07/23 melatonin 5 mg capsule 5 mg PO BEDTIME 10/20/20 08/07/23 metformin 500 mg tablet 500 mg PO BID 10/20/20 08/07/23 pregabalin 150 mg capsule 150 mg PO TID 10/20/20 08/07/23 rosuvastatin 20 mg tablet 20 mg PO DAILY 10/20/20 08/07/23 tizanidine 4 mg capsule 4 mg PO TID 10/20/20 08/07/23 vortioxetine 20 mg tablet 20 mg PO DAILY 10/20/20 08/07/23 (Trintellix) hydrocodone 10 mg-acetaminophen 1 tab PO .6 tabs daily PRN Pain 02/22/23 08/07/23 325 mg tablet lisinopril 5 mg tablet 5 mg PO BID 02/22/23 08/07/23 tirzepatide 7.5 mg/0.5 mL 10 mg SUBCUT .1x week 02/22/23 08/07/23 subcutaneous pen injector (Hugh) cyanocobalamin (vitamin B-12) 1,000 mcg IM .MONTHLY 04/17/23 08/07/23 1,000 mcg/mL injection solution epinephrine 0.3 mg/0.3 mL 0.3 mg SUBCUT PRN PRN Anaphylaxis 04/17/23 08/07/23 injection, auto-injector tirzepatide 12.5 mg/0.5 mL mg SUBCUT 08/07/23 08/07/23 subcutaneous pen injector (Nateunadeolaro) Previous Rx's Medication Instructions Recorded hydrocodone 10 mg-acetaminophen 1 tab PO Q6H PRN pain #20 tabs 07/24/23 325 mg tablet prochlorperazine maleate 5 mg 5 mg PO QID PRN nausea and 05/19/24 tablet (Compazine) vomiting #10 tabs Allergies Allergy/AdvReac Type Severity Reaction Status Date / Time Alpha-Gal Allergy nausea/vomiting, Verified 05/19/24 15:27 (Desnuluic-Tyoug-6,3-Gala diarrhea, anyphalaxis adhesive AdvReac Mild ALGY-Rash Verified 05/19/24 15:27 Review of Systems 2 General: Reports: 10 or more systems reviewed and unremarkable except in HPI and below Const: Reports: other (Pain everywhere) GI: Reports: nausea, vomiting and diarrhea PFSH ED 2 PFSH: Medical History (Updated 05/19/24 @ 21:44 by David Milan MD) Diabetes type 2, controlled Fibromyalgia Anxiety Depression Hypertension Hypotension Cervical vertebral fusion 2013 History of basal cell carcinoma of skin [id number] History of melanoma x2-- [id number] Surgical History (Updated 08/07/23 @ 08:46 by Audi Lincoln DO) Hx laparoscopic cholecystectomy H/O section x2-- 08/13/96 & 1999 History of neck surgery fusion History of endometrial ablation Hx of dilation and curettage Family History Grandmother Breast cancer Maternal Diabetes Paternal Father Cancer Skin cancer Diabetes Hypertension Family/Other Cancer Paternal Aunts and Uncles x4--skin cancer Diabetes Paternal Aunts and Uncles x4 Grandmother Diabetes Maternal Family/Other Diabetes Maternal uncle Hypertension Paternal Aunts and Uncles x4 Grandfather Stroke Paternal Mother Stroke Denies family history of Ovarian cancer Chronic kidney disease (CKD) Anesthesia complication Bleeding disorder Uterine cancer Thyroid disease Social History Smoking and tobacco/nicotine status: former use of tobacco/nicotine Alcohol intake: never Substance/Drug Use: never Physical Exam 2 Const: COMMON NORMALS: patient oriented x3 and no limitations GENERAL APPEARANCE: cooperative HENMT: COMMON NORMALS: normocephalic, atraumatic, Normal nasal mucous membranes and turbinates present, moist oral mucous membranes and oropharynx normal HEAD & SCALP: normal to inspection, normocephalic and atraumatic F ALEXANDER & SINUS: normal facial exam NOSE: Normal nasal mucous membranes and turbinates present Eye: COMMON NORMALS: Equal, round and reactive pupils present, EOMs intact bilaterally and conjunctivae normal GENERAL EYE: appearance normal, both eyes and all related structures CONJUNCTIVA: Yes conjunctivae normal PUPIL: Yes Equal, round and reactive pupils present Neck/C-Spine: COMMON NORMALS: supple Chest: COMMONS NORMALS: normal inspection of the chest Resp: COMMON NORMALS: normal respiratory effort and clear to auscultation bilaterally AUSCULTATION: clear to auscultation bilaterally Cardio: COMMON NORMALS: regular rhythm and No murmurs present (Cardio) R ATE: tachycardic RHYTHM: regular rhythm GI: COMMON NORMALS: Normal to inspection, nondistended, normoactive bowel sounds present, Soft to palpation and non-tender AUSCULTATION: Yes normoactive bowel sounds PALPATION: Yes Soft to palpation : COMMON NORMALS: Yes no CVA tenderness BLADDER/KIDNEY EXAM: Yes no CVA tenderness Back/Pelvis: COMMON NORMALS: no CVA tenderness and thoracic and lumbar spine normal to inspection Extremity: COMMON NORMALS: normal to inspection Neuro: COMMON NORMALS: patient oriented x3 and CN's II-XII intact bilaterally Psych: COMMON NORMALS: mental status grossly normal, Normal thought process present and cooperative THOUGHT PROCESS: Normal thought process present Skin: COMMON NORMALS: no rashes or lesions noted, turgor normal and no jaundice GENERAL SKIN EXAM: no rashes or lesions noted and turgor normal Course 2 Vital Signs: Vital signs: Vital Signs Temperature 98.3 F 05/19/24 15:20 Pulse Rate 120 H 05/19/24 20:35 Respiratory Rate 16 05/19/24 20:35 Blood Pressure 119/70 05/19/24 20:35 Pulse Oximetry 99 05/19/24 20:35 Oxygen Delivery Me thod Room Air 05/19/24 20:35 MDM - Nausea/Vomiting/Diarrhea Medical Decision Making CBC reveals white blood cell count of 13.3. CMP revealed a bicarb of 9. BUN 31 and creatinine 1.1. Blood sugar was 178. Lipase 9. Patient was given morphine for her pain and Compazine for her nausea and vomiting. She was given 3 L of normal saline. She was given another 0.5 mg of Dilaudid IV for her pain. Patient appears to have gastroenteritis as well as narcotic withdrawal since she has been unable to keep her pain medications down. She is feeling significantly better now. She was discharged in stable condition with a prescription for Compazine. Recommended she push clear liquids only until symptoms subside then advance her diet slowly. Follow-up with her primary care physician in 2 days if no improvement. Lab Data 05/19/24 16:02 05/19/24 16:02 Laboratory Results WBC 13.27 10^3/uL (3.29-11.43) H 05/19/24 16:02 RBC 5.32 10^6/uL (3.85-5.65) 05/19/24 16:02 Hgb 17.10 g/dL (11.27-16.99) H 05/19/24 16:02 Hct 52.4 % (36-47) H 05/19/24 16:02 MCV 98.5 fl (85-98) H 05/19/24 16:02 MCH 32.1 pg (27-33) 05/19/24 16:02 MCHC 32.6 g/dL (30-55) 05/19/24 16:02 RDW 13.8 % (12.1-15.1) 05/19/24 16:02 Plt Count 210 10^3/cmm (157-399) 05/19/24 16:02 MPV 10.0 fL (7.4-10.4) 05/19/24 16:02 Neut % (Auto) 94.2 % 05/19/24 16:02 Lymph % (Auto) 2.9 % 05/19/24 16:02 [place] % (Auto) 2.2 % 05/19/24 16:02 Eos % (Auto) 0.2 % 05/19/24 16:02 Baso % (Auto) 0.2 % 05/19/24 16:02 Neut # (Auto) 12.50 10^3/uL (1.8-7.7) H 05/19/24 16:02 Lymph # (Auto) 0.4 10^3/uL (0.8-4.8) L 05/19/24 16:02 [place] # (Auto) 0.3 10^3/uL (0.2-0.9) 05/19/24 16:02 Eos # (Auto) 0.0 10^3/uL (0.0-0.8) 05/19/24 16:02 Baso # (Auto) 0.0 10^3/uL (0.0-0.1) 05/19/24 16:02 Nucleated RBC % (auto) 0 % 05/19/24 16:02 Nucleated RBCs # 0.0 /100WBC 05/19/24 16:02 Sodium Cancelled 05/19/24 21:21 Potassium Cancelled 05/19/24 21:21 Chloride Cancelled 05/19/24 21:21 Carbon Dioxide Cancelled 05/19/24 21:21 Anion Gap Cancelled 05/19/24 21:21 BUN Cancelled 05/19/24 21:21 Creatinine Cancelled 05/19/24 21:21 GFR Calculation Cancelled 05/19/24 21:21 Glucose Cancelled 05/19/24 21:21 POC Glucose 138 mg/dL (70-110) H 05/19/24 15:24 Calculated Osmolality Cancelled 05/19/24 21:21 Calcium Cancelled 05/19/24 21:21 Total Bilirubin 0.5 mg/dL (0.15-1.2) 05/19/24 16:02 AST 55 U/L (0-32) H 05/19/24 16:02 ALT 54 U/L (0-33) H 05/19/24 16:02 Alkaline Phosphatase 63 U/L (35-105) 05/19/24 16:02 Total Protein 8.2 g/dL (6.6-8.7) 05/19/24 16:02 Albumin 4.9 g/dL (3.5-5.2) 05/19/24 16:02 Globulin 3.3 g/dL (1.3-4.6) 05/19/24 16:02 Lipase 9 U/L (13-60) L 05/19/24 16:02 No radiology studies performed this visit Discharge Plan Discharge Patient Disposition: Home Clinical Impression: Gastroenteritis, Narcotic withdrawal Condition: Stable Prescriptions: New prochlorperazine maleate [Compazine] 5 mg tablet 5 mg PO QID PRN (Reason: nausea and vomiting) Qty: 10 0RF No Action tizanidine 4 mg capsule 4 mg PO TID pregabalin 150 mg capsule 150 mg PO TID Invokana 300 mg tablet 300 mg PO BEDTIME metformin 500 mg tablet 500 mg PO BID celecoxib 200 mg capsule 200 mg PO BID Hold Instructions: Resume on 07/26/23. rosuvastatin 20 mg tablet 20 mg PO DAILY Trintellix 20 mg tablet 20 mg PO DAILY melatonin 5 mg capsule 5 mg PO BEDTIME lisinopril 5 mg tablet 5 mg PO BID Mounjaro 12.5 mg/0.5 mL pen injector SUBCUT Mounjaro 7.5 mg/0.5 mL pen injector 10 mg SUBCUT .1x week hydrocodone-acetaminophen 10-325 mg tablet 1 tab PO .6 tabs daily PRN (Reason: Pain) Hold Instructions: Resume on 07/29/23. cyanocobalamin (vitamin B-12) 1,000 mcg/mL solution 1,000 mcg IM .MONTHLY epinephrine 0.3 mg/0.3 mL auto-injector 0.3 mg SUBCUT PRN PRN (Reason: Anaphylaxis) hydrocodone-acetaminophen 10-325 mg tablet 1 tab PO Q6H PRN (Reason: pain) Qty: 20 0RF Discharge Orders: Discharge ED (Routine); Ordered 05/19/24 Ordered By: David Milan Referrals: Ag Almanzar MD [Primary Care Provider] - Patient Instructions: Gastroenteritis (DC), Opioid Safety, Pain Management Activity Restrictions/Additional Instructions: Follow-up with your primary care provider in 2 days if no improvement. Coding Level of Care Code ED [employer] Supervisor for Bert Barroso
[2024-05-19 21:58] LABS: Bilirubin Urine Negative (Negative); Blood Urine Trace (Negative); Glucose Urine UA 3+ (Normal); Ketones Urine 4+ (Negative); Leukocyte Esterase Urine Negative (Negative); Nitrate Urine Negative (Negative); Protein Urine 1+ (Negative); Specific Gravity, Urine 1.021 (1.005-1.030); Urine Appearance Clear (CLEAR); Urine Color Yellow (Yellow)
[2024-05-19 22:03] LABS: Add Urine Microscopic? YES; Bacteria Urine None Seen /hpf; Hyaline Casts Urine 3.71 /lpf; RBC Urine 0-2 /hpf (0-2); Squamous Epithelial Cell Urine 0-5 /hpf (0-5); WBC Urine 0-5 /hpf (0-5)
[2024-05-19 22:19] LABS: Anion Gap 28.5 (5-19); Blood Urea Nitrogen 32 mg/dL (6-20); Calcium 8.2 mg/dL (8.5-10.5); Chloride 104 mmol/L (98-107); Creatinine Clr Calc Pharmacy 59.4242; Glomerular Filtration Rate 52.4 mL/min (90-130); Glucose 206 mg/dL (65-115); Osmolality Calculated 297 mOsm/kg (285-295); Potassium 4.5 mmol/L (3.5-5.1); Sodium 137 mmol/L (136-145)
[2024-05-19 22:27] LABS: Carbon Dioxide 9 mmol/L (22-29)
[2024-05-19 22:40] VITALS: O2SAT 100
[2024-05-19] MEDS: HYDROmorphone 1 mg/mL INJ 1 mL 0.5 MG IVP (22:40)
[2024-05-19 22:44] VITALS: BP 150/83; PULSE 118; RESP 18; O2SAT 100
[2024-05-19 23:20] VITALS: BP 142/79; PULSE 16; O2SAT 99
== END 2024-05-19 23:22 | disposition home or self-care (01) ==
PROVIDERS: Emergency Medicine; Emergency Provider Emergency Medicine; PCP Family Medicine
DX: K52.9 Noninfective gastroenteritis and colitis, unspecified (principal); F15.23 Other stimulant dependence with withdrawal; Z87.891 Personal history of nicotine dependence; E11.9 Type 2 diabetes mellitus without complications; I10 Essential (primary) hypertension; Z85.828 Personal history of other malignant neoplasm of skin; Z85.820 Personal history of malignant melanoma of skin
CPT/HCPCS: 36415; 36416; 80048; 80053; 81001; 82962; 83690; 85025; 96361; 96374; 96375; 99284; 99291; J0780; J1171; J2270; J2405; J7030

== ENCOUNTER 2024-05-24 06:44 | Observation (INO) | payer MEDICARE, SELFPAY ==
[2024-05-24] VITALS (13 sets, daily range): BP systolic 96–172; BP diastolic 56–98; PULSE 75–107; RESP 14–17; TEMP 36.4–37; O2SAT 94–100; BMI 25.0
--- NOTE | 2024-05-24 07:07 | ECG_ITS ---
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 Measurements Intervals [place] Rate: 109 P: 72 WV: 139 QRS: 50 QRSD: 80 T: 50 QT: 307 QTc: 414 Interpretive Statements SINUS TACHYCARDIA LEFT ATRIAL ENLARGEMENT [-0.15mV P-WAVE IN V1/V2] LOW QRS VOLTAGE IN PRECORDIAL LEADS [QRS DEFLECTION < 1.0 mV IN CHEST LEADS] No previous ECG available for comparison Electronically Signed On 05-25-2024 10:26:22 DIE DRAWING CHECKER by Kiran Sanchez M.D. [email or web address]
[2024-05-24 07:09] LABS: Basophils % 0.3 %; Hematocrit 50.5 % (36-47); Lymphocytes # 1.8 10^3/uL (0.8-4.8); Mean Corpuscular HGB Conc 34.7 g/dL (30-55); Mean Corpuscular Hemoglobin 30.9 pg (27-33); Mean Corpuscular Volume 89.2 fl (85-98); Mean Platelet Volume 9.8 fL (7.4-10.4); Monocytes # 0.4 10^3/uL (0.2-0.9); Monocytes % 4.9 %; Neutrophils # 5.77 10^3/uL (1.8-7.7); Neutrophils % 72.2 %; Nucleated Red Blood Cells % 0 %; Platelet Count 187 10^3/cmm (157-399); Red Blood Count 5.66 10^6/uL (3.85-5.65); Red Cell Distribution Width 14.1 % (12.1-15.1); White Blood Count 7.99 10^3/uL (3.29-11.43)
--- NOTE | 2024-05-24 07:15 | W.ED.ABDPA2 ---
Documented by User: JD Mercer 05/24/24 11:36 HPI - Abdominal Pain General: Chief Complaint: Weakness Stated Complaint: Vomitting, heart racing, no appetite, zero energy Time Seen by Provider: 05/24/24 06:59 Source: patient and family Mode of arrival: wheelchair Limitations: no limitations History of Present Illness: Patient is a nice 53-year-old female with a history of diabetes, fibromyalgia, hypertension, hyperlipidemia, chronic pain on opiate pain medication here for complaints of epigastric pain as well as nausea and vomiting, decreased appetite, generalized weakness, and feeling like her heart is racing. Patient was seen here in our facility on 05/19 for similar symptoms and diagnosed with a gastroenteritis. Family at that time had similar illness as well. Patient feels like she has not improved since her discharge. She is describing a burning sensation to her epigastric region. It seems to be worse if she lies on her right side. She does not drink alcohol. She is on chronic Celebrex. Patient has not noticed any black or tarry stools. Has had some mild diarrhea. She is not having any chest pain, shortness of breath, or difficulty breathing. MD elicited complaint: abdominal pain Onset (ago): day(s) Pain Consistency: constant Location: Epigastric Severity: moderate Quality: burning Radiation: none Migration to: no migration Exacerbating factors: eating Relieving factors: nothing Associated Symptoms: Reports fever(s) (low grade-subjective), nausea and vomiting; Denies chills, dysuria and hematuria Related Data Home Medications Medication Instructions Recorded Confirmed canagliflozin 300 mg tablet 300 mg PO BEDTIME 10/20/20 05/24/24 (Invokana) celecoxib 200 mg capsule 200 mg PO BID 10/20/20 05/24/24 melatonin 5 mg capsule 5 mg PO BEDTIME 10/20/20 05/24/24 metformin 500 mg tablet 500 mg PO BID 10/20/20 05/24/24 pregabalin 150 mg capsule 150 mg PO TID 10/20/20 05/24/24 rosuvastatin 20 mg tablet 20 mg PO DAILY 10/20/20 05/24/24 tizanidine 4 mg capsule 4 mg PO TID 10/20/20 05/24/24 vortioxetine 20 mg tablet 20 mg PO DAILY 10/20/20 05/24/24 (Trintellix) lisinopril 5 mg tablet 5 mg PO BID 02/22/23 05/24/24 cyanocobalamin (vitamin B-12) 1,000 mcg IM .MONTHLY 04/17/23 05/24/24 1,000 mcg/mL injection solution epinephrine 0.3 mg/0.3 mL 0.3 mg SUBCUT PRN PRN Anaphylaxis 04/17/23 05/24/24 injection, auto-injector Previous Rx's Medication Instructions Recorded hydrocodone 10 mg-acetaminophen 1 tab PO Q6H PRN pain #20 tabs 07/24/23 325 mg tablet prochlorperazine maleate 5 mg 5 mg PO QID PRN nausea and 05/19/24 tablet (Compazine) vomiting #10 tabs Allergies Allergy/AdvReac Type Severity Reaction Status Date / Time Alpha-Gal Allergy nausea/vomiting, Verified 05/19/24 15:27 (Uthnjmjyd-Olkcr-0,3-Gala diarrhea, anyphalaxis adhesive AdvReac Mild ALGY-Rash Verified 05/19/24 15:27 Review of Systems Const: Reports: fever(s) (low grade-subjective); Denies: chills, body aches, fatigue or malaise Card: Denies: chest pain Resp: Denies: dyspnea GI: Reports: abdominal pain, nausea and vomiting : Denies: flank pain, dysuria, hematuria or pelvic pain Musc: Reports: other (apart from her chronic pains); Denies: neck pain, back pain, extremity pain, extremity swelling, joint pain or joint swelling Skin/Breast: Denies: rash Neuro: Denies: headache(s), numbness in extremities, weakness in extremities or sensory changes PFSH ED PFSH: Medical History Diabetes type 2, controlled Fibromyalgia Anxiety Depression Hypertension Hypotension Cervical vertebral fusion 2013 History of basal cell carcinoma of skin [id number] History of melanoma x2-- 8466-8229 Surgical History Hx laparoscopic cholecystectomy H/O section x2-- 08/13/96 & 1999 History of neck surgery fusion History of endometrial ablation Hx of dilation and curettage Family History Grandmother Breast cancer Maternal Diabetes Paternal Father Cancer Skin cancer Diabetes Hypertension Family/Other Cancer Paternal Aunts and Uncles x4--skin cancer Diabetes Paternal Aunts and Uncles x4 Grandmother Diabetes Maternal Family/Other Diabetes Maternal uncle Hypertension Paternal Aunts and Uncles x4 Grandfather Stroke Paternal Mother Stroke Denies family history of Ovarian cancer Chronic kidney disease (CKD) Anesthesia complication Bleeding disorder Uterine cancer Thyroid disease Social History Smoking and tobacco/nicotine status: former use of tobacco/nicotine Alcohol intake: never Substance/Drug Use: never Physical Exam Const: COMMON NORMALS: no acute distress, patient oriented x3, no limitations, alert and well nourished GENERAL APPEARANCE: cooperative ORIENTATION/CONSCIOUSNESS: Yes awake, Yes oriented to person, Yes oriented to place and Yes oriented to time HENMT: COMMON NORMALS: normocephalic and atraumatic HEAD & SCALP: normal to inspection, normocephalic and atraumatic Eye: COMMON NORMALS: no scleral icterus Neck/C-Spine: COMMON NORMALS: full ROM, no lymphadenopathy, supple and no meningeal signs Chest: COMMONS NORMALS: normal inspection of the chest Resp: COMMON NORMALS: normal respiratory effort and clear to auscultation bilaterally AUSCULTATION: clear to auscultation bilaterally Cardio: COMMON NORMALS: regular rate RATE: regular rate and tachycardic GI: COMMON NORMALS: Normal to inspection, nondistended, normoactive bowel sounds present, Soft to palpation, No hepatosplenomegaly present and no masses INSPECTION: Yes normal to inspection AUSCULTATION: Yes normoactive bowel sounds PALPATION: Yes Soft to palpation, Yes Tenderness to palpation present (GI) (epigastric), No Guarding due to palpation present (GI), No Rigid due to palpation and Yes No hepatosplenomegaly present : COMMON NORMALS: Yes no CVA tenderness BLADDER/KIDNEY EXAM: Yes no CVA tenderness Back/Pelvis: COMMON NORMALS: no CVA tenderness and thoracic and lumbar spine normal to inspection Extremity: COMMON NORMALS: normal to inspection, capillary refill normal, no clubbing, cyanosis or edema, no calf tenderness and no pedal edema GENERAL: Yes normal exam except as noted Neuro: COMMON NORMALS: patient oriented x3, moves all extremities, no focal motor deficits and no sensory deficits noted SENSORIUM/ORIENTATION: Yes alert, Yes oriented to person, Yes oriented to place and Yes oriented to time MENINGEAL SIGNS: Yes no meningeal signs Skin: COMMON NORMALS: no rashes or lesions noted GENERAL SKIN EXAM: no rashes or lesions noted Course Vital Signs: Vital signs: Vital Signs Temperature 98.4 F 05/25/24 04:00 Pulse Rate 90 05/25/24 04:00 Respiratory Rate 16 05/25/24 04:00 Blood Pressure 106/62 05/25/24 04:00 Pulse Oximetry 97 05/25/24 04:00 Oxygen Delivery Me thod Room Air 05/25/24 04:00 MDM - Abdominal Pain Medical Decision Making Chart reviewed and patient discussed with midlevel. Agree with assessment and plan. Labs/chart reviewed from last visit. She was tachycardic during that entire visit. Had a gap of 28.5 then and received 3L of fluids. She has not improved since discharge. She is still tachycardic here. Gap of 25.9 without much improvement after a liter of fluids. Discussed with Dr. Prakash who has also seen/assessed patient and he recommends hospitalization. Spoke to Dr. Smalls who is requesting salicylate, alcohol, CRP, ESR, lactic acid, and procalcitonin. He will come and consult on patient. Medical Records I reviewed the patient's medical records. Lab Data I reviewed the patient's lab results. 05/25/24 02:44 05/25/24 02:44 Labs/Radiology: Radiology Impressions Chest X-Ray 05/24/24 07:20 IMPRESSION: 1. Normal chest. Abdomen/Pelvis CT 05/24/24 07:34 IMPRESSION: No acute subdiaphragmatic pathology. Laboratory Results WBC 7.99 10^3/uL (3.29-11.43) 05/24/24 07:03 RBC 5.66 10^6/uL (3.85-5.65) H 05/24/24 07:03 Hgb 17.50 g/dL (11.27-16.99) H 05/24/24 07:03 Hct 50.5 % (36-47) H 05/24/24 07:03 MCV 89.2 fl (85-98) 05/24/24 07:03 MCH 30.9 pg (27-33) 05/24/24 07:03 MCHC 34.7 g/dL (30-55) 05/24/24 07:03 RDW 14.1 % (12.1-15.1) 05/24/24 07:03 Plt Count 187 10^3/cmm (157-399) 05/24/24 07:03 MPV 9.8 fL (7.4-10.4) 05/24/24 07:03 Neut % (Auto) 72.2 % 05/24/24 07:03 Lymph % (Auto) 22.0 % 05/24/24 07:03 [place] % (Auto) 4.9 % 05/24/24 07:03 Eos % (Auto) 0.0 % 05/24/24 07:03 Baso % (Auto) 0.3 % 05/24/24 07:03 Neut # (Auto) 5.77 10^3/uL (1.8-7.7) 05/24/24 07:03 Lymph # (Auto) 1.8 10^3/uL (0.8-4.8) 05/24/24 07:03 [place] # (Auto) 0.4 10^3/uL (0.2-0.9) 05/24/24 07:03 Eos # (Auto) 0.0 10^3/uL (0.0-0.8) 05/24/24 07:03 Baso # (Auto) 0.0 10^3/uL (0.0-0.1) 05/24/24 07:03 Nucleated RBC % (auto) 0 % 05/24/24 07:03 Nucleated RBCs # 0.0 /100WBC 05/24/24 07:03 ESR 5 mm/hr (0-15) 05/24/24 07:03 Sodium 138 mmol/L (136-145) 05/24/24 10:22 Potassium 3.6 mmol/L (3.5-5.1) 05/24/24 10:22 Chloride 103 mmol/L (98-107) 05/24/24 10:22 Carbon Dioxide 13 mmol/L (22-29) L 05/24/24 10:22 Anion Gap 25.6 (5-19) H 05/24/24 10:22 BUN 21 mg/dL (6-20) H 05/24/24 10:22 Creatinine 0.6 mg/dL (0.5-0.9) 05/24/24 10:22 GFR Calculation 105.4 mL/min (90-130) 05/24/24 10:22 Glucose 135 mg/dL (65-115) H 05/24/24 10:22 Estimat Average Glucose 134 05/24/24 07:03 Hemoglobin A1c 6.3 % (4.0-6.0) H 05/24/24 07:03 Calculated Osmolality 291 mOsm/kg (285-295) 05/24/24 10:22 Lactic Acid 0.7 mmol/L (0.5-2.2) 05/24/24 12:13 Calcium 9.4 mg/dL (8.5-10.5) 05/24/24 10:22 Phosphorus 1.4 mg/dL (2.5-4.5) L 05/24/24 10: Magnesium 2.0 mg/dL (1.7-2.3) 05/24/24 10:22 Total Bilirubin 0.9 mg/dL (0.15-1.2) 05/24/24 07:03 AST 18 U/L (0-32) 05/24/24 07:03 ALT 20 U/L (0-33) 05/24/24 07:03 Alkaline Phosphatase 72 U/L (35-105) 05/24/24 07:03 Troponin T Baseline 7 ng/L (0-10) 05/24/24 07:03 Troponin T 120 Minute 7.15 ng/L (0-10) 05/24/24 09:05 Delta Troponin T 0.15 ABS# (0-10) 05/24/24 09:05 C-Reactive Protein 3.0 mg/L (0.0-4.9) 05/24/24 10:22 Total Protein 8.4 g/dL (6.6-8.7) 05/24/24 07:03 Albumin 4.8 g/dL (3.5-5.2) 05/24/24 07:03 Globulin 3.6 g/dL (1.3-4.6) 05/24/24 07:03 Triglycerides 163 mg/dL (0-150) H 05/24/24 07:03 Cholesterol 112 mg/dL (0-200) 05/24/24 07:03 LDL Cholesterol, Calc 34 mg/dL (50-129) L 05/24/24 07:03 HDL Cholesterol 45 mg/dL (60-100) L 05/24/24 07:03 LDL/HDL Ratio 0.76 RATIO (0.00-3.22) 05/24/24 07:03 Cholesterol/HDL Ratio 2.49 mg/dL (0.0-4.40) 05/24/24 07:03 Procalcitonin 0.11 ng/mL (0-0.5) 05/24/24 10: TSH 1.49 uIU/mL (0.27-4.20) 05/24/24 07:03 Urine Color Yellow (Yellow) 05/24/24 07:43 Urine Appearance Clear (CLEAR) 05/24/24 07:43 Urine pH 5.5 (5-7) 05/24/24 07:43 Ur Specific [place] 1.035 (1.005-1.030) H 05/24/24 07:43 Urine Protein 1+ (Negative) A 05/24/24 07:43 Urine Glucose (UA) 3+ (Normal) H 05/24/24 07:43 Urine Ketones 4+ (Negative) 05/24/24 07:43 Urine Blood 1+ (Negative) A 05/24/24 07:43 Urine Nitrate Negative (Negative) 05/24/24 07:43 Urine Bilirubin Negative (Negative) 05/24/24 07:43 Urine Urobilinogen 0.2 mg/dL (Negative) 05/24/24 07:43 Ur Leukocyte Esterase Negative (Negative) 05/24/24 07:43 Urine RBC 0-2 /hpf (0-2) 05/24/24 07:43 Urine WBC 0-5 /hpf (0-5) 05/24/24 07:43 Ur Squamous Epith Cells 0-5 /hpf (0-5) 05/24/24 07:43 Amorphous Sediment Not Reportable 05/24/24 07:43 Urine Bacteria None seen /hpf (NONE) 05/24/24 07:43 Hyaline Casts 12.38 /lpf 05/24/24 07:43 Fine Granular Casts 0-4 /lpf H 05/24/24 07:43 Salicylates < 0.3 mg/dL (3-10) L 05/24/24 10:22 Ethyl Alcohol < 10 mg/dL (0-10) 05/24/24 10:22 Serum Ketones Negative (Negative) 05/24/24 07:03 Discharge Plan Discharge Patient Disposition: Admitted As Inpatient Admit Provider: David Smalls Clinical Impression: Gastritis, Metabolic acidosis, increased anion gap Condition: Stable Coding Level of Care Code ED Newspaper Inserter for Chg Fwd Documented by User: Wilmer Prakash DO 05/25/24 06:20 HPI - Abdominal Pain General: Chief Complaint: Weakness Stated Complaint: Vomitting, heart racing, no appetite, zero energy Time Seen by Provider: 05/24/24 06:59 Related Data Home Medications Medication Instructions Recorded Confirmed canagliflozin 300 mg tablet 300 mg PO BEDTIME 10/20/20 05/24/24 (Invokana) celecoxib 200 mg capsule 200 mg PO BID 10/20/20 05/24/24 melatonin 5 mg capsule 5 mg PO BEDTIME 10/20/20 05/24/24 metformin 500 mg tablet 500 mg PO BID 10/20/20 05/24/24 pregabalin 150 mg capsule 150 mg PO TID 10/20/20 05/24/24 rosuvastatin 20 mg tablet 20 mg PO DAILY 10/20/20 05/24/24 tizanidine 4 mg capsule 4 mg PO TID 10/20/20 05/24/24 vortioxetine 20 mg tablet 20 mg PO DAILY 10/20/20 05/24/24 (Trintellix) lisinopril 5 mg tablet 5 mg PO BID 02/22/23 05/24/24 cyanocobalamin (vitamin B-12) 1,000 mcg IM .MONTHLY 04/17/23 05/24/24 1,000 mcg/mL injection solution epinephrine 0.3 mg/0.3 mL 0.3 mg SUBCUT PRN PRN Anaphylaxis 04/17/23 05/24/24 injection, auto-injector Previous Rx's Medication Instructions Recorded hydrocodone 10 mg-acetaminophen 1 tab PO Q6H PRN pain #20 tabs 07/24/23 325 mg tablet prochlorperazine maleate 5 mg 5 mg PO QID PRN nausea and 05/19/24 tablet (Compazine) vomiting #10 tabs Allergies Allergy/AdvReac Type Severity Reaction Status Date / Time Alpha-Gal Allergy nausea/vomiting, Verified 05/19/24 15:27 (Jumkpfbsk-Qonzo-6,3-Gala diarrhea, anyphalaxis adhesive AdvReac Mild ALGY-Rash Verified 05/19/24 15:27 PFSH ED PFSH: Medical History Diabetes type 2, controlled Fibromyalgia Anxiety Depression Hypertension Hypotension Cervical vertebral fusion 2013 History of basal cell carcinoma of skin 1587-4770 History of melanoma x2-- 5766-6579 Surgical History Hx laparoscopic cholecystectomy H/O section x2-- 08/13/96 & 1999 History of neck surgery fusion History of endometrial ablation Hx of dilation and curettage Family History Grandmother Breast cancer Maternal Diabetes Paternal Father Cancer Skin cancer Diabetes Hypertension Family/Other Cancer Paternal Aunts and Uncles x4--skin cancer Diabetes Paternal Aunts and Uncles x4 Grandmother Diabetes Maternal Family/Other Diabetes Maternal uncle Hypertension Paternal Aunts and Uncles x4 Grandfather Stroke Paternal Mother Stroke Denies family history of Ovarian cancer Chronic kidney disease (CKD) Anesthesia complication Bleeding disorder Uterine cancer Thyroid disease Social History Smoking and tobacco/nicotine status: former use of tobacco/nicotine Alcohol intake: never Substance/Drug Use: never Course Vital Signs: Vital signs: Vital Signs Temperature 98.4 F 05/25/24 04:00 Pulse Rate 90 05/25/24 04:00 Respiratory Rate 16 05/25/24 04:00 Blood Pressure 106/62 05/25/24 04:00 Pulse Oximetry 97 05/25/24 04:00 Oxygen Delivery Me thod Room Air 05/25/24 04:00 MDM - Abdominal Pain Medical Decision Making Labs/chart reviewed from last visit. She was tachycardic during that entire visit. Had a gap of 28.5 then and received 3L of fluids. She has not improved since discharge. She is still tachycardic here. Gap of 25.9 without much improvement after a liter of fluids. Discussed with Dr. Prakash who has also seen/assessed patient and he recommends hospitalization. Spoke to Dr. Smalls who is requesting salicylate, alcohol, CRP, ESR, lactic acid, and procalcitonin. He will come and consult on patient. Chart reviewed and patient discussed with midlevel. Agree with assessment and plan. Lab Data 05/25/24 02:44 05/25/24 02:44 Labs/Radiology: Radiology Impressions Chest X-Ray 05/24/24 07:20 IMPRESSION: 1. Normal chest. Abdomen/Pelvis CT 05/24/24 07:34 IMPRESSION: No acute subdiaphragmatic pathology. Laboratory Results WBC 7.99 10^3/uL (3.29-11.43) 05/24/24 07:03 RBC 5.66 10^6/uL (3.85-5.65) H 05/24/24 07:03 Hgb 17.50 g/dL (11.27-16.99) H 05/24/24 07:03 Hct 50.5 % (36-47) H 05/24/24 07:03 MCV 89.2 fl (85-98) 05/24/24 07:03 MCH 30.9 pg (27-33) 05/24/24 07:03 MCHC 34.7 g/dL (30-55) 05/24/24 07:03 RDW 14.1 % (12.1-15.1) 05/24/24 07:03 Plt Count 187 10^3/cmm (157-399) 05/24/24 07:03 MPV 9.8 fL (7.4-10.4) 05/24/24 07:03 Neut % (Auto) 72.2 % 05/24/24 07:03 Lymph % (Auto) 22.0 % 05/24/24 07:03 [place] % (Auto) 4.9 % 05/24/24 07:03 Eos % (Auto) 0.0 % 05/24/24 07:03 Baso % (Auto) 0.3 % 05/24/24 07:03 Neut # (Auto) 5.77 10^3/uL (1.8-7.7) 05/24/24 07:03 Lymph # (Auto) 1.8 10^3/uL (0.8-4.8) 05/24/24 07:03 [place] # (Auto) 0.4 10^3/uL (0.2-0.9) 05/24/24 07:03 Eos # (Auto) 0.0 10^3/uL (0.0-0.8) 05/24/24 07:03 Baso # (Auto) 0.0 10^3/uL (0.0-0.1) 05/24/24 07:03 Nucleated RBC % (auto) 0 % 05/24/24 07:03 Nucleated RBCs # 0.0 /100WBC 05/24/24 07:03 ESR 5 mm/hr (0-15) 05/24/24 07:03 Sodium 138 mmol/L (136-145) 05/24/24 10:22 Potassium 3.6 mmol/L (3.5-5.1) 05/24/24 10:22 Chloride 103 mmol/L (98-107) 05/24/24 10:22 Carbon Dioxide 13 mmol/L (22-29) L 05/24/24 10:22 Anion Gap 25.6 (5-19) H 05/24/24 10:22 BUN 21 mg/dL (6-20) H 05/24/24 10:22 Creatinine 0.6 mg/dL (0.5-0.9) 05/24/24 10:22 GFR Calculation 105.4 mL/min (90-130) 05/24/24 10:22 Glucose 135 mg/dL (65-115) H 05/24/24 10:22 Estimat Average Glucose 134 05/24/24 07:03 Hemoglobin A1c 6.3 % (4.0-6.0) H 05/24/24 07:03 Calculated Osmolality 291 mOsm/kg (285-295) 05/24/24 10:22 Lactic Acid 0.7 mmol/L (0.5-2.2) 05/24/24 12:13 Calcium 9.4 mg/dL (8.5-10.5) 05/24/24 10:22 Phosphorus 1.4 mg/dL (2.5-4.5) L 05/24/24 10:22 Magnesium 2.0 mg/dL (1.7-2.3) 05/24/24 10:22 Total Bilirubin 0.9 mg/dL (0.15-1.2) 05/24/24 07:03 AST 18 U/L (0-32) 05/24/24 07:03 ALT 20 U/L (0-33) 05/24/24 07:03 Alkaline Phosphatase 72 U/L (35-105) 05/24/24 07:03 Troponin T Baseline 7 ng/L (0-10) 05/24/24 07:03 Troponin T 120 Minute 7.15 ng/L (0-10) 05/24/24 09:05 Delta Troponin T 0.15 ABS# (0-10) 05/24/24 09:05 C-Reactive Protein 3.0 mg/L (0.0-4.9) 05/24/24 10: Total Protein 8.4 g/dL (6.6-8.7) 05/24/24 07:03 Albumin 4.8 g/dL (3.5-5.2) 05/24/24 07:03 Globulin 3.6 g/dL (1.3-4.6) 05/24/24 07:03 Triglycerides 163 mg/dL (0-150) H 05/24/24 07:03 Cholesterol 112 mg/dL (0-200) 05/24/24 07:03 LDL Cholesterol, Calc 34 mg/dL (50-129) L 05/24/24 07:03 HDL Cholesterol 45 mg/dL (60-100) L 05/24/24 07:03 LDL/HDL Ratio 0.76 RATIO (0.00-3.22) 05/24/24 07:03 Cholesterol/HDL Ratio 2.49 mg/dL (0.0-4.40) 05/24/24 07:03 Procalcitonin 0.11 ng/mL (0-0.5) 05/24/24 10: TSH 1.49 uIU/mL (0.27-4.20) 05/24/24 07:03 Urine Color Yellow (Yellow) 05/24/24 07:43 Urine Appearance Clear (CLEAR) 05/24/24 07:43 Urine pH 5.5 (5-7) 05/24/24 07:43 Ur Specific [place] 1.035 (1.005-1.030) H 05/24/24 07:43 Urine Protein 1+ (Negative) A 05/24/24 07:43 Urine Glucose (UA) 3+ (Normal) H 05/24/24 07:43 Urine Ketones 4+ (Negative) 05/24/24 07:43 Urine Blood 1+ (Negative) A 05/24/24 07:43 Urine Nitrate Negative (Negative) 05/24/24 07:43 Urine Bilirubin Negative (Negative) 05/24/24 07:43 Urine Urobilinogen 0.2 mg/dL (Negative) 05/24/24 07:43 Ur Leukocyte Esterase Negative (Negative) 05/24/24 07:43 Urine RBC 0-2 /hpf (0-2) 05/24/24 07:43 Urine WBC 0-5 /hpf (0-5) 05/24/24 07:43 Ur Squamous Epith Cells 0-5 /hpf (0-5) 05/24/24 07:43 Amorphous Sediment Not Reportable 05/24/24 07:43 Urine Bacteria None seen /hpf (NONE) 05/24/24 07:43 Hyaline Casts 12.38 /lpf 05/24/24 07:43 Fine Granular Casts 0-4 /lpf H 05/24/24 07:43 Salicylates < 0.3 mg/dL (3-10) L 05/24/24 10:22 Ethyl Alcohol < 10 mg/dL (0-10) 05/24/24 10:22 Serum Ketones Negative (Negative) 05/24/24 07:03 All radiology interpretation(s) finalized by discharge Discharge Plan Discharge Patient Disposition: Admitted As Inpatient Admit Provider: David Smalls Clinical Impression: Gastritis, Metabolic acidosis, increased anion gap Condition: Stable Coding Level of Care Code ED Newspaper Inserter for Bert Barroso
--- NOTE | 2024-05-24 07:20 | XR_ITS ---
WS: [id number] Exam: XR chest 1V portable [id number] Date/Time of Exam: 05/24/2024 7:26 AM Reason For Exam: chest pain No priors. Lungs are clear and fully inflated. Heart size is normal. The mediastinum is normal in contour. Unrem arkable bony structures. Fusion hardware in the lower C-spine. Spondylosis of the T-spine with slight dextroscoliosis. XR/XR chest 1V portable [id number] IMPRESSION: 1. Normal chest.
[2024-05-24 07:25] LABS: Alanine Aminotransferase 20 U/L (0-33); Albumin Level 4.8 g/dL (3.5-5.2); Alkaline Phosphatase 72 U/L (35-105); Anion Gap 25.9 (5-19); Aspartate Amino Transferase 18 U/L (0-32); Blood Urea Nitrogen 24 mg/dL (6-20); Calcium 10.3 mg/dL (8.5-10.5); Carbon Dioxide 17 mmol/L (22-29); Chloride 98 mmol/L (98-107); Creatinine Clr Calc Pharmacy 95.6174; Globulin 3.6 g/dL (1.3-4.6); Glomerular Filtration Rate 88.2 mL/min (90-130); Glucose 164 mg/dL (65-115); Osmolality Calculated 292 mOsm/kg (285-295); Potassium 3.9 mmol/L (3.5-5.1); Sodium 137 mmol/L (136-145); Total Bilirubin 0.9 mg/dL (0.15-1.2); Total Protein 8.4 g/dL (6.6-8.7)
--- NOTE | 2024-05-24 07:34 | CTR_ITS ---
PROCEDURE INFORMATION: Exam: CT Abdomen And Pelvis With Contrast Exam date and time: 05/24/2024 8:04 AM Age: 53 years old Clinical indication: Abdominal pain; Localized; Upper; Additional info: Epigastric pain, burning, n/v, low grade fever TECHNIQUE: Imaging protocol: Computed tomography of the abdomen and pelvis with contrast. Radiation optimization: All CT scans at this facility use at least one of these dose optimization techniques: automated exposure control; mA and/or kV adjustment per patient size (includes targeted exams where dose is matched to clinical indication); or iterative reconstruction. Contrast material: OMNI 350; Contrast volume: 100 ml; Contrast route: INTRAVENOUS (IV); COMPARISON: NM hepatobiliary w phar* [id number] 06/20/2023 8:00 AM RADIATION DOSE METRICS: Total DLP (mGy-cm): 508.74 FINDINGS: Liver: Normal. No mass. Gallbladder and biliary ducts: Cholecystectomy. Pancreas: Normal. No ductal dilation. Spleen: Normal. No splenomegaly. Adrenal glands: Normal. No mass. Kidneys and ureters: Normal. No hydronephrosis. Stomach and bowel: Unremarkable. No obstruction. No mucosal thickening. Appendix: No evidence of appendicitis. Intraperitoneal space: Unremarkable. No free air. No significant fluid collection. Vasculature: Unremarkable. No abdominal aortic aneurysm. Lymph nodes: Unremarkable. No enlarged lymph nodes. Urinary bladder: Unremarkable as visualized. Reproductive: Unremarkable as visualized. Bones/joints: Unremarkable. No acute fracture. Soft tissues: Unremarkable. CT/CT abdomen pelvis w con* [id number] IMPRESSION: No acute subdiaphragmatic pathology.
[2024-05-24 07:44] LABS: Ketone (Acetest) Serum Negative (Negative); Troponin(5th) Baseline 7 ng/L (0-10)
--- NOTE | 2024-05-24 07:44 | ECG_ITS ---
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 Measurements Intervals [place] Rate: 95 P: 0 TX: 0 QRS: 39 QRSD: 96 T: 56 QT: 336 QTc: 422 Interpretive Statements SINUS RHYTHM WITH SINUS ARRHYTHMIAS LOW QRS VOLTAGE IN PRECORDIAL LEADS [QRS DEFLECTION < 1.0 mV IN CHEST LEADS] Compared to ECG 05/24/2024 07:07:51 Sinus tachycardia no longer present Atrial abnormality no longer present ST (T wave) deviation no longer present Myocardial infarct finding no longer present Electronically Signed On 05-25-2024 10:37:05 HAND COREMAKER by Kiran Sanchez M.D. [id number]
[2024-05-24] MEDS: sodium chloride 0.9% 1,000 ML 999 ML IV ×2 (07:55→11:33)
[2024-05-24] MEDS: metoclopramide 5 mg/mL SDV 2 mL 10 MG IVP (07:56)
[2024-05-24 07:59] LABS: Bilirubin Urine Negative (Negative); Blood Urine 1+ (Negative); Glucose Urine UA 3+ (Normal); Ketones Urine 4+ (Negative); Leukocyte Esterase Urine Negative (Negative); Nitrate Urine Negative (Negative); Protein Urine 1+ (Negative); Urine Appearance Clear (CLEAR); Urine Color Yellow (Yellow); Urobilinogen Urine 0.2 mg/dL (Negative); pH Urine 5.5 (5-7)
[2024-05-24 08:04] LABS: Add Urine Microscopic? YES; Bacteria Urine None Seen /hpf; Hyaline Casts Urine 12.38 /lpf; RBC Urine 0-2 /hpf (0-2); Squamous Epithelial Cell Urine 0-5 /hpf (0-5); WBC Urine 0-5 /hpf (0-5)
[2024-05-24] MEDS: iohexol 350 mg/mL 500 mL Btl (per mL) IV (08:07)
[2024-05-24 08:16] LABS: Specific Gravity, Urine 1.035 (1.005-1.030)
[2024-05-24 08:17] LABS: Fine Granular Casts Urine 0-4 /lpf; UA Slide Review UA Slide Review Perf
[2024-05-24] MEDS: lidocaine 2% viscous 15 ML, aluminum-mag hydrox-simethicon 30 ML, sucralfate oral liq 1 GM PO (08:27)
[2024-05-24 09:41] LABS: Troponin 5 2HR 7.15 ng/L (0-10); Troponin 5 2HR Delta 0.15 ABS# (0-10)
--- NOTE | 2024-05-24 09:42 | ECG_ITS ---
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 Measurements Intervals [place] Rate: 97 P: 70 AR: 121 QRS: 42 QRSD: 90 T: 56 QT: 355 QTc: 452 Interpretive Statements SINUS RHYTHM POSSIBLE LEFT ATRIAL ENLARGEMENT [-0.1mV P-WAVE IN V1/V2] LOW QRS VOLTAGE IN PRECORDIAL LEADS [QRS DEFLECTION < 1.0 mV IN CHEST LEADS] Compared to ECG 05/24/2024 07:44:09 Atrial fibrillation no longer present Electronically Signed On 05-25-2024 10:36:38 EMR IMPLEMENTATION SPECIALIST by Kiran Sanchez M.D. [email or web address]
[2024-05-24] MEDS: pantoprazole 40 mg SDV IVP ×2 (10:24→20:38)
[2024-05-24 10:48] LABS: Anion Gap 25.6 (5-19); Blood Urea Nitrogen 21 mg/dL (6-20); Calcium 9.4 mg/dL (8.5-10.5); Carbon Dioxide 13 mmol/L (22-29); Chloride 103 mmol/L (98-107); Creatinine Clr Calc Pharmacy 111.5536; Glomerular Filtration Rate 105.4 mL/min (90-130); Glucose 135 mg/dL (65-115); Osmolality Calculated 291 mOsm/kg (285-295); Potassium 3.6 mmol/L (3.5-5.1); Sodium 138 mmol/L (136-145)
[2024-05-24 11:52] LABS: Alcohol Level < 10 mg/dL (0-10); Salicylate < 0.3 mg/dL (3-10)
[2024-05-24 11:54] LABS: Erythrocyte Sedimentation Rate 5 mm/hr (0-15)
[2024-05-24 11:58] LABS: Procalcitonin 0.11 ng/mL (0-0.5)
[2024-05-24 12:38] LABS: Lactic Sepsis W/Reflex 0.7 mmol/L (0.5-2.2)
--- NOTE | 2024-05-24 13:14 | ECG_ITS ---
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 Measurements Intervals [place] Rate: 68 P: 76 NE: 137 QRS: 54 QRSD: 77 T: 65 QT: 346 QTc: 370 Interpretive Statements SINUS RHYTHM LOW QRS VOLTAGE IN PRECORDIAL LEADS [QRS DEFLECTION < 1.0 mV IN CHEST LEADS] SEPTAL MYOCARDIAL INFARCTION , OF INDETERMINATE AGE [40+ ms Q WAVE IN V1/V2 Compared to ECG 05/24/2024 09:42:55 Myocardial infarct finding now present ST (T wave) deviation now present Electronically Signed On 05-25-2024 10:35:05 GAME PROGRAMER by Kiran Sanchez M.[email or web address]
--- NOTE | 2024-05-24 13:36 | P.HP_ITS ---
Providers/Chief Complaint 2 Admitting Physician: David Smalls MD Primary Care Provider: Ag Almanzar MD Chief Complaint: Vomitting, heart racing, no appetite, zero energy History of Present Illness Dana Farmer is a 53 year old female with a past medical history of type 2 diabetes mellitus, who presents to [facility] due to nausea, vomiting, diarrhea, dehydration, poor appetite. According to patient, about a week ago, her family started getting sick from the flu, she also had flu symptoms, most of her family got better but she had persistent symptoms, fatigue, malaise, with diarrhea, nausea, vomiting, poor oral intake. Her symptomatology persisted so much so that she has had poor oral intake, persistent nausea, vomiting, inability keep down liquids, diffuse abdominal pain, no fevers, no chills does feel weak,. She presented to the emergency room 05/19/2024 was given fluids, however she continued to have significant symptomatology, poor oral intake, fatigue, malaise, diarrhea, inability to keep down solids and liquids, persistent nausea and vomiting. She denies smoking, no alcohol use, no drug use. She denies a history of food poisoning. She drinks well water, no other 5 members are sick. She is status post cholecystectomy, denies a history of gallbladder dumping syndrome, no significant hyperglycemia, ketones are negative in the ER Review of Systems 2 Const: Reports: fatigue and change in sleep pattern; Denies: fever(s) or chills Card: Denies: chest pain Resp: Denies: dyspnea GI: Reports: abdominal pain, nausea, vomiting and diarrhea : Denies: flank pain Neuro: Denies: headache(s) Endo: Denies: polyuria Medications/Allergies Home Medications Medication Instructions Recorded Confirmed Last Taken Type canagliflozin 300 mg tablet 300 mg PO BEDTIME 10/20/20 05/24/24 07/21/23 History (Invokana) celecoxib 200 mg capsule 200 mg PO BID 10/20/20 05/24/24 07/23/23 History melatonin 5 mg capsule 5 mg PO BEDTIME 10/20/20 05/24/24 07/23/23 History metformin 500 mg tablet 500 mg PO BID 10/20/20 05/24/24 07/23/23 History pregabalin 150 mg capsule 150 mg PO TID 10/20/20 05/24/24 07/23/23 History rosuvastatin 20 mg tablet 20 mg PO DAILY 10/20/20 05/24/24 07/23/23 History tizanidine 4 mg capsule 4 mg PO TID 10/20/20 05/24/24 07/23/23 History vortioxetine 20 mg tablet 20 mg PO DAILY 10/20/20 05/24/24 07/23/23 History (Trintellix) lisinopril 5 mg tablet 5 mg PO BID 02/22/23 05/24/24 07/23/23 History cyanocobalamin (vitamin B-12) 1,000 mcg IM .MONTHLY 04/17/23 05/24/24 1 Month Ago History 1,000 mcg/mL injection solution ~06/23/23 epinephrine 0.3 mg/0.3 mL 0.3 mg SUBCUT PRN PRN Anaphylaxis 04/17/23 05/24/24 Unknown History injection, auto-injector hydrocodone 10 mg-acetaminophen 1 tab PO Q6H PRN pain #20 tabs 07/24/23 05/24/24 Unknown Rx 325 mg tablet prochlorperazine maleate 5 mg 5 mg PO QID PRN nausea and 05/19/24 05/24/24 Unknown Rx tablet (Compazine) vomiting #10 tabs Allergies Allergy/AdvReac Type Severity Reaction Status Date / Time Alpha-Gal Allergy nausea/vomiting, Verified 05/19/24 15:27 ([id number]-0,3-Gala diarrhea, anyphalaxis adhesive AdvReac Mild ALGY-Rash Verified 05/19/24 15:27 PFSH Acute 2 PFSH: Medical History Diabetes type 2, controlled Fibromyalgia Anxiety Depression Hypertension Hypotension Cervical vertebral fusion 2013 History of basal cell carcinoma of skin [id number] History of melanoma x2-- [id number] Surgical History Hx laparoscopic cholecystectomy H/O section x2-- 08/13/96 & 1999 History of neck surgery fusion History of endometrial ablation Hx of dilation and curettage Family History Grandmother Breast cancer Maternal Diabetes Paternal Father Cancer Skin cancer Diabetes Hypertension Family/Other Cancer Paternal Aunts and Uncles x4--skin cancer Diabetes Paternal Aunts and Uncles x4 Grandmother Diabetes Maternal Family/Other Diabetes Maternal uncle Hypertension Paternal Aunts and Uncles x4 Grandfather Stroke Paternal Mother Stroke Denies family history of Ovarian cancer Chronic kidney disease (CKD) Anesthesia complication Bleeding disorder Uterine cancer Thyroid disease Social History Smoking and tobacco/nicotine status: former use of tobacco/nicotine Alcohol intake: never Substance/Drug Use: never Vitals/I&O/Wt Last Vital Signs Temp 97.8 F 05/24/24 06:56 Pulse 89 05/24/24 13:00 Resp 16 05/24/24 13:00 BP 107/80 05/24/24 13:00 Pulse Ox 100 05/24/24 13:00 O2 Del Method Room Air 05/24/24 10:00 05/23/24 05/24/24 05/24/24 22:59 06:59 14:59 Intake Total 1000 / 1000 Balance 1000 / 1000 Weight last 48 hrs Weight 70.307 kg Physical Exam 2 Const: COMMON NORMALS: no acute distress and patient oriented x3 HENMT: COMMON NORMALS: normocephalic HEAD & SCALP: normocephalic Eye: COMMON NORMALS: Equal, round and reactive pupils present Neck/C-Spine: COMMON NORMALS: no JVD Resp: COMMON NORMALS: normal respiratory effort, No retractions, No use of accessory muscles and clear to auscultation bilaterally AUSCULTATION: clear to auscultation bilaterally Cardio: COMMON NORMALS: no JVD, regular rate, regular rhythm, S1 normal heart sound present and S2 normal heart sound present RATE: regular rate RHYTHM: regular rhythm HEART SOUNDS: S1 normal heart sound present and S2 normal heart sound present GI: OTHER: Abdomen soft, slightly distended, good bowel sounds in all 4 quadrants, no guarding, no rebound, no rigidity, diffuse abdominal tenderness to palpation Extremity: COMMON NORMALS: no calf tenderness and no pedal edema Neuro: COMMON NORMALS: patient oriented x3, CN's II-XII intact bilaterally and moves all extremities Psych: COMMON NORMALS: mental status grossly normal Data 05/24/24 07:03 05/24/24 10:22 A&P Assessment and plan (1) Metabolic acidosis, increased anion gap: (2) Intractable nausea and vomiting: (3) Dehydration: Plan - Intractable nausea, vomiting, dehydration, increased anion gap metabolic acidosis Plan -IV fluids -Urine toxicology screen -Zofran for nausea -Morphine for pain -Protonix 40 IV twice daily -Serial abdominal exams -Full code -Lovenox for DVT prophylaxis Attestations 2 Medical Necessity Statement*: Patient requires hospitalization, outpatient with observation, for intractable nausea vomiting dehydration, increased anion gap metabolic acidosis Diagnoses Metabolic acidosis, increased anion gap E87.29 Intractable nausea and vomiting R11.2 Dehydration E86.0
[2024-05-24 14:18] LABS: Phosphorus 1.4 mg/dL (2.5-4.5)
[2024-05-24 14:40] LABS: Covid PCR NEGATIVE (Negative); Influenza A NEGATIVE (Negative); Influenza B NEGATIVE (Negative); Respiratory Syncytial Virus Ce NEGATIVE (Negative)
[2024-05-24 14:57] LABS: Estmated Average Glucose 134; Hemoglobin A1C 6.3 % (4.0-6.0)
[2024-05-24] MEDS: pregabalin 150 mg Capsule PO ×2 (15:33→20:39)
[2024-05-24] MEDS: enoxaparin 40 mg/0.4 mL Syringe SUBCUT (15:33)
[2024-05-24] MEDS: sodium chloride 0.9% 1,000 ML 125 ML IV ×2 (15:33→23:42)
[2024-05-24 16:13] LABS: Chol HDL Ratio 2.49 mg/dL (0.0-4.40); Cholesterol 112 mg/dL (0-200); HDL Cholesterol 45 mg/dL (60-100); LDL Cholesterol Calculated 34 mg/dL (50-129); LDL HDL Ratio 0.76 RATIO (0.00-3.22); Thyroid Stimulating Hormone 1.49 uIU/mL (0.27-4.20); Triglycerides 163 mg/dL (0-150)
[2024-05-24 17:00] LABS: Glucose Point of Care 129 mg/dL (70-110)
[2024-05-24] MEDS: ondansetron 2 mg/ML SDV 2 mL 4 MG IVP (17:14)
[2024-05-24] MEDS: lisinopril 5 mg Tablet PO (17:14)
[2024-05-24 20:42] LABS: Glucose Point of Care 110 mg/dL (70-110)
[2024-05-24 21:11] LABS: Amphetamines Screen Urine Negative (Negative); Barbiturates Screen Urine Negative (Negative); Benzodiazepines Screen Urine Negative (Negative); Cocaine Screen Urine Negative (Negative); Opiate Screen Urine Positive (Negative); PCP Screen Urine Negative (Negative); THC Screen Urine Negative (Negative)
[2024-05-24] MEDS: guaiFENesin 600 mg Tablet 1200 MG PO (21:28)
[2024-05-25 04:00] VITALS: BP 106/62; PULSE 90; RESP 16; TEMP 36.9; O2SAT 97
[2024-05-25 04:18] LABS: Basophils % 0.3 %; Eosinophils % 0.1 %; Lymphocytes # 2.9 10^3/uL (0.8-4.8); Lymphocytes % 31.7 %; Mean Corpuscular HGB Conc 33.8 g/dL (30-55); Mean Corpuscular Hemoglobin 31.9 pg (27-33); Mean Corpuscular Volume 94.4 fl (85-98); Mean Platelet Volume 10.3 fL (7.4-10.4); Monocytes # 0.5 10^3/uL (0.2-0.9); Monocytes % 5.9 %; Neutrophils # 5.58 10^3/uL (1.8-7.7); Neutrophils % 61.1 %; Nucleated Red Blood Cells % 0 %; Platelet Count 156 10^3/cmm (157-399); Red Blood Count 3.92 10^6/uL (3.85-5.65); Red Cell Distribution Width 14.6 % (12.1-15.1); White Blood Count 9.13 10^3/uL (3.29-11.43)
[2024-05-25 04:20] LABS: Anion Gap 21.4 (5-19); Blood Urea Nitrogen 13 mg/dL (6-20); Carbon Dioxide 13 mmol/L (22-29); Chloride 108 mmol/L (98-107); Creatinine Clr Calc Pharmacy 111.5536; Glomerular Filtration Rate 105.4 mL/min (90-130); Glucose 89 mg/dL (65-115); Magnesium 1.9 mg/dL (1.7-2.3); Osmolality Calculated 288 mOsm/kg (285-295); Phosphorus 1.9 mg/dL (2.5-4.5); Potassium 3.4 mmol/L (3.5-5.1); Sodium 139 mmol/L (136-145)
[2024-05-25 06:46] LABS: Glucose Point of Care 108 mg/dL (70-110)
[2024-05-25 08:00] VITALS: BP 113/68; PULSE 92; RESP 17; TEMP 37.1; O2SAT 97
[2024-05-25] MEDS: lisinopril 5 mg Tablet PO (09:21)
[2024-05-25] MEDS: sodium bicarbonate 650 mg Tablet PO (09:21)
[2024-05-25] MEDS: pregabalin 150 mg Capsule PO (09:21)
[2024-05-25] MEDS: sodium chloride 0.9% 1,000 ML 125 ML IV (09:21)
[2024-05-25] MEDS: atorvastatin 40 mg Tablet 80 MG PO (09:21)
[2024-05-25] MEDS: pantoprazole 40 mg SDV IVP (09:22)
[2024-05-25] MEDS: potassium phosphate (mEq K) 40 MEQ in sodium chloride 0.9% (100 ml) 100 ML 27.25 MEQ IV (09:22)
--- NOTE | 2024-05-25 10:50 | PM.DCS ---
Discharge Providers Date of Admission: 05/24/24 13:16 Date of Discharge: May 25, 2024 Attending Provider at Admission: David Smalls MD Attending Provider at Discharge: David Smalls MD Primary Care Provider: Ag Almanzar MD Diagnoses at Discharge Discharge Diagnosis (1) Metabolic acidosis, increased anion gap: Status: Acute (2) Intractable nausea and vomiting: Status: Acute (3) Dehydration: Status: Acute Reason for Visit Reason for Visit: Vomitting, heart racing, no appetite, zero energy Hospital Course Hospital Course Dana Farmer is a 53 year old female with a past medical history of type 2 diabetes mellitus, who presents to [facility] due to nausea, vomiting, diarrhea, dehydration, poor appetite. According to patient, about a week ago, her family started getting sick from the flu, she also had flu symptoms, most of her family got better but she had persistent symptoms, fatigue, malaise, with diarrhea, nausea, vomiting, poor oral intake. Her symptomatology persisted so much so that she has had poor oral intake, persistent nausea, vomiting, inability keep down liquids, diffuse abdominal pain, no fevers, no chills does feel weak,. She presented to the emergency room 05/19/2024 was given fluids, however she continued to have significant symptomatology, poor oral intake, fatigue, malaise, diarrhea, inability to keep down solids and liquids, persistent nausea and vomiting. She denies smoking, no alcohol use, no drug use. She denies a history of food poisoning. She drinks well water, no other 5 members are sick. She is status post cholecystectomy, denies a history of gallbladder dumping syndrome, no significant hyperglycemia, ketones are negative in the ER Patient was admitted to [facility] for intractable nausea, vomiting, dehydration, increased anion gap metabolic acidosis, ketones negative, blood sugars reasonable, urine toxicology screen negative, CT abdomen pelvis negative for acute findings, received IV hydration as inpatient, pain control, nausea control, overall clinically improved. Will be discharged on instructions to drink plenty of electrolyte balanced fluids, GI soft diet, follow-up with primary care provider as outpatient For patient's complaints of abdominal pain, possibly gastritis given use of Celebrex, discontinue Celebrex on discharge. Discharged on Protonix, Carafate with a close follow-up with general surgery as outpatient for consideration of EGD and colonoscopy. Monitor CBC as outpatient. Hold metformin until Monday. Physical Exam Const: COMMON NORMALS: no acute distress and patient oriented x3 Resp: COMMON NORMALS: normal respiratory effort, No retractions, No use of accessory muscles and clear to auscultation bilaterally AUSCULTATION: clear to auscultation bilaterally Cardio: COMMON NORMALS: regular rate, regular rhythm, S1 normal heart sound present and S2 normal heart sound present RATE: regular rate RHYTHM: regular rhythm HEART SOUNDS: S1 normal heart sound present and S2 normal heart sound present GI: COMMON NORMALS: Normal to inspection, nondistended, normoactive bowel sounds present and non-tender Extremity: COMMON NORMALS: no pedal edema Neuro: COMMON NORMALS: patient oriented x3 Psych: COMMON NORMALS: mental status grossly normal Discharge Data Studies Completed and Pending Completed Studies During Hospitalization Category Date Time Status CT abdomen pelvis w con* [id number] Stat Cat Scan 05/24/24 07:34 Completed XR chest 1V portable [id number] Urgent Exams 05/24/24 07:20 Completed Pending at discharge Category Date Time Status BMP [Basic Metabolic Panel] Stat Lab 05/25/24 12:00 Ordered Blood Culture Routine Lab 05/24/24 18:39 Results C.Diff PCR (Lab) Routine Lab 05/24/24 14:31 Ordered CBC Auto Diff [Complete Blood Count w/Auto] Stat Lab 05/25/24 12:00 Ordered Complete Blood Count w/Auto AM LABS Lab 05/26/24 04:00 Ordered Complete Blood Count w/Auto AM LABS Lab 05/27/24 04:00 Ordered Immunochemical Fecal OCB Routine Lab 05/24/24 14:31 Ordered Lactoferrin Routine Lab 05/24/24 14:31 Ordered Magnesium AM LABS Lab 05/26/24 04:00 Ordered Magnesium AM LABS Lab 05/27/24 04:00 Ordered OVA and Parasites, Conc and PE Routine Lab 05/24/24 14:31 Ordered Phosphorus AM LABS Lab 05/26/24 04:00 Ordered Phosphorus AM LABS Lab 05/27/24 04:00 Ordered Salmonella / Shigella / Campy Routine Lab 05/24/24 14:31 Ordered Radiology Impressions Chest X-Ray 05/24/24 07:20 IMPRESSION: 1. Normal chest. Abdomen/Pelvis CT 05/24/24 07:34 IMPRESSION: No acute subdiaphragmatic pathology. Laboratory Results WBC 9.13 10^3/uL (3.29-11.43) 05/25/24 02:44 RBC 3.92 10^6/uL (3.85-5.65) 05/25/24 02:44 Hgb 12.50 g/dL (11.27-16.99) 05/25/24 02:44 Hct 37.0 % (36-47) 05/25/24 02:44 MCV 94.4 fl (85-98) D 05/25/24 02:44 MCH 31.9 pg (27-33) 05/25/24 02:44 MCHC 33.8 g/dL (30-55) 05/25/24 02:44 RDW 14.6 % (12.1-15.1) 05/25/24 02:44 Plt Count 156 10^3/cmm (157-399) L 05/25/24 02:44 MPV 10.3 fL (7.4-10.4) 05/25/24 02:44 Neut % (Auto) 61.1 % 05/25/24 02:44 Lymph % (Auto) 31.7 % 05/25/24 02:44 [place] % (Auto) 5.9 % 05/25/24 02:44 Eos % (Auto) 0.1 % 05/25/24 02:44 Baso % (Auto) 0.3 % 05/25/24 02:44 Neut # (Auto) 5.58 10^3/uL (1.8-7.7) 05/25/24 02:44 Lymph # (Auto) 2.9 10^3/uL (0.8-4.8) 05/25/24 02:44 [place] # (Auto) 0.5 10^3/uL (0.2-0.9) 05/25/24 02:44 Eos # (Auto) 0.0 10^3/uL (0.0-0.8) 05/25/24 02:44 Baso # (Auto) 0.0 10^3/uL (0.0-0.1) 05/25/24 02:44 Nucleated RBC % (auto) 0 % 05/25/24 02:44 Nucleated RBCs # 0.0 /100WBC 05/25/24 02:44 ESR 5 mm/hr (0-15) 05/24/24 07:03 Sodium 139 mmol/L (136-145) 05/25/24 02:44 Potassium 3.4 mmol/L (3.5-5.1) L 05/25/24 02:44 Chloride 108 mmol/L (98-107) H 05/25/24 02:44 Carbon Dioxide 13 mmol/L (22-29) L 05/25/24 02:44 Anion Gap 21.4 (5-19) H 05/25/24 02:44 BUN 13 mg/dL (6-20) 05/25/24 02:44 Creatinine 0.6 mg/dL (0.5-0.9) 05/25/24 02:44 GFR Calculation 105.4 mL/min (90-130) 05/25/24 02:44 Glucose 89 mg/dL (65-115) 05/25/24 02:44 POC Glucose 108 mg/dL (70-110) 05/25/24 06:38 Estimat Average Glucose 134 05/24/24 07:03 Hemoglobin A1c 6.3 % (4.0-6.0) H 05/24/24 07:03 Calculated Osmolality 288 mOsm/kg (285-295) 05/25/24 02:44 Lactic Acid 0.7 mmol/L (0.5-2.2) 05/24/24 12:13 Calcium 8.0 mg/dL (8.5-10.5) L 05/25/24 02:44 Phosphorus 1.9 mg/dL (2.5-4.5) L 05/25/24 02:44 Magnesium 1.9 mg/dL (1.7-2.3) 05/25/24 02:44 Total Bilirubin 0.9 mg/dL (0.15-1.2) 05/24/24 07:03 AST 18 U/L (0-32) 05/24/24 07:03 ALT 20 U/L (0-33) 05/24/24 07:03 Alkaline Phosphatase 72 U/L (35-105) 05/24/24 07:03 Troponin T Baseline 7 ng/L (0-10) 05/24/24 07:03 Troponin T 120 Minute 7.15 ng/L (0-10) 05/24/24 09:05 Delta Troponin T 0.15 ABS# (0-10) 05/24/24 09:05 Troponin T Hi Sens 6Hr 6.00 ng/L (0-10) 05/24/24 13:45 Troponin T Hi Sens 6Hr Delta -1.00 ng/L (0-12) L 05/24/24 13:45 C-Reactive Protein 3.0 mg/L (0.0-4.9) 05/24/24 10:22 Total Protein 8.4 g/dL (6.6-8.7) 05/24/24 07:03 Albumin 4.8 g/dL (3.5-5.2) 05/24/24 07:03 Globulin 3.6 g/dL (1.3-4.6) 05/24/24 07:03 Triglycerides 163 mg/dL (0-150) H 05/24/24 07:03 Cholesterol 112 mg/dL (0-200) 05/24/24 07:03 LDL Cholesterol, Calc 34 mg/dL (50-129) L 05/24/24 07:03 HDL Cholesterol 45 mg/dL (60-100) L 05/24/24 07:03 LDL/HDL Ratio 0.76 RATIO (0.00-3.22) 05/24/24 07:03 Cholesterol/HDL Ratio 2.49 mg/dL (0.0-4.40) 05/24/24 07:03 Procalcitonin 0.11 ng/mL (0-0.5) 05/24/24 10: TSH 1.49 uIU/mL (0.27-4.20) 05/24/24 07:03 Urine Color Yellow (Yellow) 05/24/24 07:43 Urine Appearance Clear (CLEAR) 05/24/24 07:43 Urine pH 5.5 (5-7) 05/24/24 07:43 Ur Specific [place] 1.035 (1.005-1.030) H 05/24/24 07:43 Urine Protein 1+ (Negative) A 05/24/24 07:43 Urine Glucose (UA) 3+ (Normal) H 05/24/24 07:43 Urine Ketones 4+ (Negative) 05/24/24 07:43 Urine Blood 1+ (Negative) A 05/24/24 07:43 Urine Nitrate Negative (Negative) 05/24/24 07:43 Urine Bilirubin Negative (Negative) 05/24/24 07:43 Urine Urobilinogen 0.2 mg/dL (Negative) 05/24/24 07:43 Ur Leukocyte Esterase Negative (Negative) 05/24/24 07:43 Urine RBC 0-2 /hpf (0-2) 05/24/24 07:43 Urine WBC 0-5 /hpf (0-5) 05/24/24 07:43 Ur Squamous Epith Cells 0-5 /hpf (0-5) 05/24/24 07:43 Amorphous Sediment Not Reportable 05/24/24 07:43 Urine Bacteria None seen /hpf (NONE) 05/24/24 07:43 Hyaline Casts 12.38 /lpf 05/24/24 07:43 Fine Granular Casts 0-4 /lpf H 05/24/24 07:43 Salicylates < 0.3 mg/dL (3-10) L 05/24/24 10:22 Urine Opiates Screen Positive ng/mL (Negative) H 05/24/24 20:54 Ur Barbiturates Screen Negative ng/mL (Negative) 05/24/24 20:54 Ur Phencyclidine Scrn Negative ng/mL (Negative) 05/24/24 20:54 Ur Amphetamines Screen Negative ng/mL (Negative) 05/24/24 20:54 U Benzodiazepines Scrn Negative ng/mL (Negative) 05/24/24 20:54 Urine Cocaine Screen Negative ng/mL (Negative) 05/24/24 20:54 U Marijuana (THC) Screen Negative ng/mL (Negative) 05/24/24 20:54 Ethyl Alcohol < 10 mg/dL (0-10) 05/24/24 10:22 Serum Ketones Negative (Negative) 05/24/24 07:03 Coronavirus (PCR) Negative (Negative) 05/24/24 13:40 Influenza A (PCR) Negative (Negative) 05/24/24 13:40 Influenza Type B (PCR) Negative (Negative) 05/24/24 13:40 RSV (PCR) Negative (Negative) 05/24/24 13:40 Vitals Last Vital Signs Temp 98.8 F 05/25/24 08:00 Pulse 92 05/25/24 08:00 Resp 17 05/25/24 08:00 BP 113/68 05/25/24 08:00 Pulse Ox 97 05/25/24 08:00 O2 Del Method Room Air 05/25/24 08:00 Discharge Plan Discharge Patient Disposition: Home Condition: Stable Prescriptions: New pantoprazole [Protonix] 40 mg tablet,delayed release (DR/EC) See Rx Instructions .ROUTE .COMPLEX 28 Days Qty: 28 0RF Rx Instructions: Take 1 tab BID x 2 weeks then daily thereafter ondansetron HCl 4 mg tablet 4 mg PO Q8H PRN (Reason: nausea and vomiting) 7 Days Qty: 21 0RF sucralfate [Carafate] 1 gram tablet 1 g PO BID 14 Days Qty: 28 0RF Continued pregabalin 150 mg capsule 150 mg PO TID Invokana 300 mg tablet 300 mg PO BEDTIME rosuvastatin 20 mg tablet 20 mg PO DAILY Trintellix 20 mg tablet 20 mg PO DAILY melatonin 5 mg capsule 5 mg PO BEDTIME lisinopril 5 mg tablet 5 mg PO BID cyanocobalamin (vitamin B-12) 1,000 mcg/mL solution 1,000 mcg IM .MONTHLY epinephrine 0.3 mg/0.3 mL auto-injector 0.3 mg SUBCUT PRN PRN (Reason: Anaphylaxis) prochlorperazine maleate [Compazine] 5 mg tablet 5 mg PO QID PRN (Reason: nausea and vomiting) Qty: 10 0RF hydrocodone-acetaminophen 10-325 mg tablet 1 tab PO Q6H PRN (Reason: pain) Qty: 20 0RF Changed tizanidine 4 mg capsule 4 mg PO TID PRN (Reason: pain) Qty: 1 0RF Held metformin 500 mg tablet 500 mg PO BID Hold Instructions: Resume on 05/27/24. Discontinued celecoxib 200 mg capsule 200 mg PO BID Hold Instructions: Resume on 07/26/23. Discharge Orders: Discharge Order (Routine); Ordered 05/25/24 Ordered By: David Smalls Referrals: Audi Lincoln DO [Physician] - 1 week (egd and colonoscopy) Ag Almanzar MD [Primary Care Provider] - Discharge Diet: GI Soft Discharge Activity: Resume usual activity Patient Instructions: Gastritis (DC), Diet for Stomach Ulcers and Gastritis (ED), Opioid Safety Activity Restrictions/Additional Instructions: - Please hydrate well -Drink plenty of electrolyte balanced fluids -See your primary care provider next week -Use Protonix and Carafate as prescribed -General Surgery in 1 week for consideration of EGD and colonoscopy -Please discontinue Celebrex use -Please avoid NSAIDs use -Please have your primary care provider monitor your CBC and your BMP as outpatient - Discharge Attestations Time Spent in Discharge Care*: greater than 30 min Quality Metrics Clinical Quality Measures [ No reported AMI, CVA or VTE this stay] Coding Level of Care Code Acute Code for Chg Fwd Diagnoses Metabolic acidosis, increased anion gap E87.29 Intractable nausea and vomiting R11.2 Dehydration E86.0
[2024-05-25 11:55] VITALS: BP 122/71; PULSE 72; RESP 17; TEMP 36.7; O2SAT 99
[2024-05-25 13:27] LABS: Basophils % 0.4 %; Eosinophils % 0.1 %; Hematocrit 38.2 % (36-47); Lymphocytes # 2.3 10^3/uL (0.8-4.8); Lymphocytes % 27.9 %; Mean Corpuscular HGB Conc 32.5 g/dL (30-55); Mean Corpuscular Hemoglobin 31.3 pg (27-33); Mean Corpuscular Volume 96.5 fl (85-98); Mean Platelet Volume 10.8 fL (7.4-10.4); Monocytes # 0.4 10^3/uL (0.2-0.9); Monocytes % 5.2 %; Neutrophils # 5.26 10^3/uL (1.8-7.7); Neutrophils % 65.2 %; Nucleated Red Blood Cells % 0 %; Platelet Count 118 10^3/cmm (157-399); Red Blood Count 3.96 10^6/uL (3.85-5.65); Red Cell Distribution Width 14.6 % (12.1-15.1); White Blood Count 8.07 10^3/uL (3.29-11.43)
[2024-05-25 13:51] LABS: Anion Gap 22.1 (5-19); Blood Urea Nitrogen 9 mg/dL (6-20); Calcium 7.6 mg/dL (8.5-10.5); Carbon Dioxide 12 mmol/L (22-29); Chloride 106 mmol/L (98-107); Creatinine Clr Calc Pharmacy 139.9264; Glomerular Filtration Rate 130.1 mL/min (90-130); Glucose 134 mg/dL (65-115); Osmolality Calculated 283 mOsm/kg (285-295); Potassium 4.1 mmol/L (3.5-5.1); Sodium 136 mmol/L (136-145)
--- NOTE | 2024-05-25 14:40 | PC.NURSE ---
Patient's discharge was delayed because the doctor wanted labs before he discharged her.
[2024-05-25 15:05] VITALS: BP 122/71; PULSE 72; RESP 17; TEMP 36.7; O2SAT 99
--- NOTE | 2024-05-27 07:20 | DCPLANNER ---
messaged gen surg for er f/u
== END 2024-05-25 14:50 | disposition home or self-care (01) ==
LOC: ER 13:09 → MEDSURG 13:55
PROVIDERS: Family Medicine; Admitting Provider Family Medicine; Emergency Provider Physician Assistant; PCP Family Medicine; Visit Provider Family Medicine
DX: E87.29 Other acidosis (principal); R11.2 Nausea with vomiting, unspecified; E86.0 Dehydration; E11.9 Type 2 diabetes mellitus without complications; M79.7 Fibromyalgia; I10 Essential (primary) hypertension; E78.5 Hyperlipidemia, unspecified; G89.29 Other chronic pain; Z79.891 Long term (current) use of opiate analgesic; F32.A Depression, unspecified; Z87.891 Personal history of nicotine dependence; F41.9 Anxiety disorder, unspecified
CPT/HCPCS: 0241U; 36415; 36416; 71045; 74177; 80048; 80053; 80061; 80306; 80307; 81001; 82009; 82962; 83036; 83605; 83735; 84100; 84145; 84443; 84484; 85025; 85651; 86140; 87040; 93005; 94664; 96365; 96372; 96375; 96376; 99285; G0378; J1650; J2405; J2470; J2765; J7030

== ENCOUNTER → 2024-06-03 07:53 | Outpatient (BNVA) | payer MEDICARE, SELFPAY | PROVIDERS: PCP Family Medicine; Visit Provider Surgery | DX: Z09 Encounter for follow-up examination after completed treatment for conditions other than malignant neoplasm (principal); R03.0 Elevated blood-pressure reading, without diagnosis of hypertension; K21.9 Gastro-esophageal reflux disease without esophagitis; K52.9 Noninfective gastroenteritis and colitis, unspecified | CPT/HCPCS: 99214 ==

== ENCOUNTER 2024-10-23 09:47 | Outpatient (CLI) | payer MEDICARE, SELFPAY ==
--- NOTE | 2024-10-23 09:49 | MM_ITS ---
WS: [id number] BILATERAL SCREENING DIGITAL TOMOSYNTHESIS MAMMOGRAM WITH CAD HISTORY: SCREENING COMPARISON: 06/12/2019, 05/10/2019 Bilateral CC and MLO views with tomosynthesis and synthetic mammography submitted. Computer aided detection analyzed. Breast composition: There are scattered areas of fibroglandular density. No suspicious masses, microcalcifications or architectural distortion. Benign lymph node upper outer quadrant RIGHT breast. There are a few small scattered calcifications in each breast. MM/MM scr tomosynthesis [id number] IMPRESSION: BI-RADS: 2 - Benign. FOLLOW UP: 1 Year Follow-up
== END 2024-10-23 09:48 | disposition home or self-care (01) ==
PROVIDERS: PCP Family Medicine; Visit Provider Nurse Practitioner Family
DX: Z12.31 Encounter for screening mammogram for malignant neoplasm of breast (principal); R92.323 Mammographic fibroglandular density, bilateral breasts; R59.0 Localized enlarged lymph nodes; R92.1 Mammographic calcification found on diagnostic imaging of breast
CPT/HCPCS: 77063; 77067